=== PATIENT | female | born 1960 | race African-American/Black ===

== ENCOUNTER 2017-02-19 02:30 | Inpatient (IN) | payer OTHER ==
[2017-02-18 12:33] VITALS: BMI 39.5
[2017-02-19] MEDS ORDERED: oxyCODONE HCL 10 MG SUSTAINED ACTING TABLET ONE (08:04)
[2017-02-19] MEDS ORDERED: GABAPENTIN 300 MG CAPSULE (FP) ONE (08:05)
[2017-02-19] MEDS ORDERED: CELECOXIB 200 MG CAPSULE ONE (08:05)
[2017-02-19] MEDS ORDERED: TRANEXAMIC ACID 1000 MG/10 ML VIAL IVPUSH ONE (08:06)
[2017-02-19] MEDS ORDERED: GABAPENTIN 300 MG CAPSULE (FP) PO ONE (08:06)
[2017-02-19] MEDS ORDERED: CEFAZOLIN 2 GM/D5W 50 ML IVPB ONE (08:06)
[2017-02-19] MEDS ORDERED: CELECOXIB 200 MG CAPSULE PO ONE (08:06)
[2017-02-19] MEDS ORDERED: oxyCODONE HCL 10 MG SUSTAINED ACTING TABLET PO ONE (08:06)
--- NOTE | 2017-02-19 08:08 | HP ---
Satellite [facility] - Chief Complaint Chief Complaint: left knee pain - Past Medical History Allergies/Adverse Reactions: Allergies Allergy/AdvReac Type Severity Reaction Status Date / Time No Known Drug Allergies Allergy Verified 10/02/16 14:21 seasonal Allergy Mild Uncoded 10/02/16 14:21 - Current Medications Current Medications: Home Medications Medication Instructions Recorded Cetirizine HCl [Zyrtec -] 10 mg PO DAILY 02/18/17 Chlorthalidone 25 mg PO DAILY 02/18/17 Gabapentin [Neurontin] 600 mg PO TID 02/18/17 Losartan/Hydrochlorothiazide 1 each PO DAILY 02/18/17 [Hyzaar 100-25 Tablet] Potassium Chloride [K-Dur -] 20 meq PO DAILY 02/18/17 Tramadol HCl 50 mg PO DAILY PRN 02/18/17 [facility] Physical Exam - Physical Examination General Appearance: Well Nourished, Well Developed, Alert & Oriented x3, Obese ENT: Clear Lung: Normal air movement Heart: Regular rate & rhythm Extremities: Other (left knee- + swelling, + ttp, dec rom, nvi xray show severe tricompartmental djd) Neurological: Intact, Alert, Oriented Satellite Impression/Plan - Impression/Plan Impression: left knee djd Operative Procedure: left franchesca tkr Date to be Performed: 02/19/17
[2017-02-19] MEDS ORDERED: MIDAZOLAM HCL 2 MG/2 ML SINGLE DOSE VIAL ONE ×2 (08:19→09:49)
[2017-02-19] MEDS ORDERED: SODIUM CHLORIDE 0.9% P/F 10 ML VIAL IJ ONE (08:19)
[2017-02-19] MEDS ORDERED: DEXAMETHASONE SOD PHOSPHATE/PF 10 MG/ML SDV ONE (08:19)
[2017-02-19] MEDS ORDERED: ROPIVACAINE HCL 0.5% 30ML VIAL ONE (08:19)
[2017-02-19] MEDS ORDERED: VANCOMYCIN 1,000 MG VIAL (RESTRICTED TO ID ONLY) ONE (08:26)
[2017-02-19] MEDS ORDERED: ceFAZolin SODIUM 1 GM VIAL ONE (08:26)
[2017-02-19] MEDS ORDERED: PROPOFOL 20 ML ONE ×4 (09:49)
[2017-02-19] MEDS ORDERED: LACTATED RINGERS SOLUTION 1,000 ML IV SCH (12:00)
[2017-02-19] MEDS ORDERED: MAGNESIUM HYDROX 2400MG/30ML ORAL SUSPENSION 30 ML CUP PO PRN (12:00)
[2017-02-19] MEDS ORDERED: ONDANSETRON 4 MG/2 ML VIAL IVPB PRN (12:00)
[2017-02-19] MEDS ORDERED: MAG HYDROX/AL HYDROX/SIMETH 30 ML UNIT-DOSE CUP PO PRN (12:00)
--- NOTE | 2017-02-19 12:04 | OP ---
Operative Note - Note: Operative Date: 02/19/17 (tex) Pre-Operative Diagnosis: left knee djd Operation: left franchesca tkr Post-Operative Diagnosis: Same as Pre-op Surgeon: Wyatt Singh Front End Mechanic: Robbin Darling Anesthesia: Spinal, Local Specimens Removed: bone fragments Estimated Blood Loss (mls): 50 (tourniquet) Operative Report Dictated: Yes
[2017-02-19] MEDS ORDERED: ROPIVACAINE 0.2% 400ML 400 ML ML NR ONE (12:16)
[2017-02-19] MEDS ORDERED: oxyCODONE HCL 5 MG TABLET PO PRN (12:16)
[2017-02-19] MEDS ORDERED: ONDANSETRON 4 MG/2 ML VIAL ONE (12:32)
[2017-02-19] MEDS ORDERED: oxyCODONE HCL 5 MG TABLET ONE (13:19)
[2017-02-19] MEDS ORDERED: ACETAMINOPHEN 325 MG TABLET (FP) PO SCH (15:00)
[2017-02-19] MEDS: oxyCODONE HCL 5 MG TABLET PO PRN (16:02)
[2017-02-19] MEDS: CEFAZOLIN 2 GM/D5W 50 ML IVPB SCH (17:23)
[2017-02-19] MEDS: SENNOSIDES/DOCUSATE COMBO (SENNA PLUS) TABLET (UD) PO SCH (21:32)
[2017-02-19] MEDS: ACETAMINOPHEN 325 MG TABLET (FP) PO SCH (21:32)
[2017-02-19] MEDS: oxyCODONE HCL 10 MG SUSTAINED ACTING TABLET PO SCH (21:32)
[2017-02-19] MEDS: GABAPENTIN 300 MG CAPSULE (FP) PO SCH (21:33)
[2017-02-20] MEDS: oxyCODONE HCL 5 MG TABLET PO PRN ×4 (01:03→18:05)
[2017-02-20] MEDS: ACETAMINOPHEN 325 MG TABLET (FP) PO SCH ×4 (01:17→21:44)
[2017-02-20] MEDS: CEFAZOLIN 2 GM/D5W 50 ML IVPB SCH (01:51)
[2017-02-20] MEDS: ASPIRIN 325 MG TABLET PO SCH (08:03)
--- NOTE | 2017-02-20 08:14 | PN ---
Progress Note (short form) - Note Progress Note: Ortho Pt seen and examined s/p left franchesca tkr pod #1 Selected Entries 02/20/17 06:00 Temperature 97.9 F Pulse Rate 84 Respiratory 19 Rate Blood Pressure 126/77 dressing c/d/i, calf soft, nt rom 0-30, nvi cbc pending a/p PT dvt ppx pain control d/c planning home vs rehab
[2017-02-20 09:11] LABS: MCH 26.2 pg (25.7-33.7); MCHC 32.5 g/dl (32.0-36.0); MEAN CELL VOLUME 80.7 fl (80-96); MEAN PLT VOLUME 7.3 fl (7.5-11.1); PLATELET COUNT 310 K/MM3 (134-434); RDW 13.8 % (11.6-15.6); WHITE BLOOD COUNT 7.8 K/mm3 (4.0-10.0)
[2017-02-20 09:16] LABS: CALCIUM 8.8 mg/dl (8.4-10.2); CREATININE 0.7 mg/dl (0.6-1.3)
[2017-02-20] MEDS: MULTIVITAMINS (DAILY MVI) TABLET (FP) PO SCH (10:06)
[2017-02-20] MEDS: PANTOPRAZOLE 40 MG TABLET (FP) PO SCH (10:06)
[2017-02-20] MEDS: SENNOSIDES/DOCUSATE COMBO (SENNA PLUS) TABLET (UD) PO SCH ×2 (10:06→21:44)
[2017-02-20] MEDS: oxyCODONE HCL 10 MG SUSTAINED ACTING TABLET PO SCH ×2 (10:07→21:45)
[2017-02-20] MEDS: CHLORTHALIDONE 25 MG TABLET PO SCH (10:07)
[2017-02-20] MEDS: LOSARTAN 50MG/HCTZ 12.5MG 1 TAB (FP) PO SCH (10:07)
[2017-02-20] MEDS: POTASSIUM CHLORIDE TABS 20 MEQ TABLET.ER (FP) PO SCH (10:08)
[2017-02-20] MEDS: LORATADINE 10 MG TABLET PO SCH (10:08)
[2017-02-20] MEDS: GABAPENTIN 300 MG CAPSULE (FP) PO SCH ×2 (10:09→21:44)
--- NOTE | 2017-02-20 12:29 | SPEC ---
DATE OF OPERATION: 02/19/2017 OPERATION: Left total knee replacement with robotic-assisted navigation (MAKOplasty). PREOPERATIVE DIAGNOSIS: Degenerative joint disease, left knee. POSTOPERATIVE DIAGNOSIS: Degenerative joint disease, left knee. SURGEON: Wyatt Singh M.D. SCANNING COORDINATOR: Dawson Irvin ANESTHESIA: Regional and spinal. CLOSURE: A Triathlon knee system with a 4 femur, a 5 tibia, a 11 polyethylene, a 35 patella. A number 1 Vicryl fascia, 0 and 2-0 for subcutaneous, 3-0 Monocryl subcuticular with skin glue for skin, 4-0 undyed Vicryl for pin sites. ESTIMATED BLOOD LOSS: Negligible. TOURNIQUET TIME: Approximately 75 minutes. COMPLICATIONS: None CONDITION: To recovery room in stable condition. DESCRIPTION OF PROCEDURE: Patient was taken to the operating room on February 19, 2017. Regional and spinal anesthesia were administered by the anesthesiologist. IV antibiotics and TXA were administered prophylactically prior to the case. A well-padded pneumatic tourniquet was placed on the left proximal thigh. The left lower extremity was prepped and draped in the usual sterile fashion. An approximately 12-cm midline incision centered over the patella was incised. Hemostasis was achieved with Bovie cautery. Sharp dissection was carried down to the level of the extensor mechanism. The medial parapatellar arthrotomy was then performed. The patella was inverted and the knee was flexed up to 90 degrees. Subperiosteal dissection was performed on the anteromedial proximal tibia until the knee was able to be brought forward. This was facilitated by taking the ACL, the PCL, and the medial and lateral menisci. A checkpoint was malleted into the medial femoral condyle and into the anteromedial proximal tibia. Through two small stab incisions in the mid femur and two in the mid tibia, two bicortical pins were drilled, achieving excellent height. Two of these pins were attached to the navigation arrays. The knee was then registered with the navigation device by rotating the hip to ascertain the center of rotation of the hip with points on both the medial and lateral malleoli and multiple points on both the femur and on the tibia. Excellent registration was confirmed by "popping the bubbles". At this time, the osteophytes on the edges of the proximal tibia both medially and laterally, as well as on the medial lateral femoral condyles underneath the collateral ligaments were debrided. The knee was stressed in extension and in flexion to confirm good gaps. The virtual positions of the components were then optimized in order to have a balanced knee, both in extension and in 90 degrees of flexion. The sizes of the components were also optimized to get good coverage over both the tibia and the femur and to produce equal gaps in extension and flexion with the appropriate amount of external rotation of the femur, the appropriate amount of flexion of the femoral component and the appropriate slope on the tibial component. At this time, the robot was brought into the field and registered. The robot was used to cut the proximal tibia and to make all the cuts on the distal femur. The bone was then removed. A spacer block in extension and flexion was used to confirm equal balancing of the component in both extension and 90 degrees of flexion. The box for the posterior cruciate sacrificing component was then performed and a trial component on the femur and tibia was applied. The femoral component was clipped into place with the appropriate external rotation. This was confirmed by the navigation device, ensuring the appropriate position of the tibial component on the proximal tibia. The patella was calipered for thickness and osteotomized at the appropriate level. A lollipop was used to drill the three lugholes in the patella and then a trial component was applied. The knee was taken through a range of motion and found to have excellent tracking of the patella from full extension to full flexion, with good stability, varus/valgus throughout range of motion. The trial components were then removed. Before removing the tibial tray, the keyhole was made. The knee was then thoroughly irrigated with antibiotic irrigation. The real components were then cemented in, using modern generation cement techniques with antibiotic cement and pressurization. After the cement was hardened, the knee was thoroughly inspected to remove all excess cement. The real polyethylene component was then clipped into place. Again, range of motion, stability and tracking were found to be excellent throughout. The knee was then pulse antibiotic irrigated and dried. Vancomycin powder was placed into the knee. The checkpoints were removed. The medial parapatellar arthrotomy was then closed using number 1 Vicryl interrupted suture. The knee was again taken through range of motion and found to have no undue tension on the repair and good tracking throughout. The subcutaneous was closed with 0 and 2-0 Vicryl and 3-0 Monocryl subcuticular for skin with skin glue. The pins were removed in the femur and the tibia and pulse antibiotic irrigated and closed with 4-0 undyed Vicryl. Sterile Aquacel dressing followed by a Kraus dressing was applied. The tourniquet was then deflated. One more dose of TXA was administered at the end of the case. The patient was awakened from anesthesia and transferred to the recovery room in stable condition. X-rays revealed good position of the components. There were no complications. Estimated blood loss was negligible. Total tourniquet time was approximately 75 minutes. Irene [id number]
--- NOTE | 2017-02-20 15:02 | PN ---
Progress Note (short form) - Note Progress Note: Patient doing well POD1 from total knee. Pain from knee is adequately controlled. Patient ambulated. She did not participate in physical therapy but plans to in rehab. Her only pain complaints are posterior L lower leg and ankle with some back pain. All of this pain is old and chronic. She has seen multiple physicians for that pain. Adductor canal catheter and pain medications are working for knee pain. Continue current care. Encourage ambulation.
[2017-02-21] MEDS: oxyCODONE HCL 5 MG TABLET PO PRN ×2 (02:17→18:29)
[2017-02-21] MEDS: ACETAMINOPHEN 325 MG TABLET (FP) PO SCH ×4 (02:19→21:40)
[2017-02-21] MEDS: LOSARTAN 50MG/HCTZ 12.5MG 1 TAB (FP) PO SCH ×2 (06:44→09:19)
--- NOTE | 2017-02-21 07:57 | PN ---
Progress Note (short form) - Note Progress Note: Ortho Pt seen and examined s/p left franchesca tkr pod #2 Selected Entries 02/21/17 06:33 Temperature 99.1 F Pulse Rate 88 Respiratory 19 Rate Blood Pressure 113/68 Laboratory Tests 02/20/17 02/20/17 08:30 08:30 WBC 7.8 Hgb 10.4 L Hct 31.9 L Plt Count 310 Potassium 2.9 L* dressing c/d/i, calf soft, nt rom 0-30, nvi a/p Refused repeat K, will repeat K today PT dvt ppx pain control d/c to snf- Due to the patients pain, difficulty with ambulating and lack of progress, it is recommended that the patient be transferred to SNF. She lives alone and has multiple flights of stairs that she will not be able to navigate on her own which will put her in severe risk if she is to be discharged home.
--- NOTE | 2017-02-21 07:58 | DS ---
Physical Examination Vital Signs: Vital Signs Temperature 99.1 F 02/21/17 06:33 Pulse Rate 88 02/21/17 06:33 Respiratory Rate 19 02/21/17 06:33 Blood Pressure 113/68 02/21/17 06:33 O2 Sat by Pulse Oximetry (%) 93 L 02/21/17 06:33 Labs: CBC, BMP 02/20/17 08:30 02/20/17 08:30 Discharge Summary Reason For Visit: OSTEOARTHRITIS Procedures: Principal: s/p left franchesca tkr Hospital Course: admitted for elective left franchesca tkr, developed post-op hypokalemia and was given IV K+, stable for d/c Condition: Good - Instructions Diet, Activity, Other Instructions: Post-op Instructions-Total Knee Replacement Call the office for a follow-up appointment in 1 week - [phone] Aspirin 325mg daily for 6 weeks. Pain medication was sent into your pharmacy. Apply Graduated Compression Stockings (TEDs) to both lower extremities- remove daily for hygiene ONLY Apply Sequential Compression Device (SCDs) to both Lower extremities remove for PT and hygiene ONLY Apply cold packs to affected area for 15 minutes every 2 hours. Physical Therapist will come to your home for the first 5 days. You will be set up with outpatient PT at your first post-operative visit. Patient may ambulate as tolerated-encourage self care (at least every 2-3 hours while awake) with walker or cane Maintain Aquacel (waterproof) dressing to operative wound (will be removed by surgeon at first office visit) Shower with Aquacel dressing in place-if Aquacel integrity compromised, remove and apply dry sterile dressing and notify Orthopedist. DO NOT SHOWER unless Orthopedists approves without Aquacel dressing CONTACT THE OFFICE FOR ANY CHANGE IN YOUR CONDITION (for example-fever greater than 102 degrees,excessive bleeding from operative site, purulent drainage, severe swelling or pain) GO TO THE EMERGENCY ROOM IF THERE IS A MEDICAL EMERGENCY Knee Precautions: * Keep a rolled towel under affected heel while in bed or chair (to keep knee in extension) * Keep affected leg elevated except during mealtimes * DO NOT PLACE PILLOW UNDER AFFECTED KNEE * If you have any questions, please do not hesitate to call the office - . Referrals: Wyatt Singh MD [Staff Physician] - Disposition: VNS/HOME HEALTH CARE - Home Medications Comprehensive Discharge Medication List: Ambulatory Orders Cetirizine HCl [Zyrtec -] 10 mg PO DAILY 02/18/17 Chlorthalidone 25 mg PO DAILY 02/18/17 Gabapentin [Neurontin] 600 mg PO TID 02/18/17 Losartan/Hydrochlorothiazide [Hyzaar 100-25 Tablet] 1 each PO DAILY 02/18/17 Potassium Chloride [K-Dur -] 20 meq PO DAILY 02/18/17 Tramadol HCl 50 mg PO DAILY PRN 02/18/17 Aspirin [ASA -] 325 mg PO DAILY@0800 tablet 02/19/17 Oxycodone HCl/Acetaminophen [Percocet 5-325 mg Tablet -] 1 - 2 tab PO Q6H #50 tab MDD 8 02/19/17
[2017-02-21] MEDS: ASPIRIN 325 MG TABLET PO SCH (08:07)
[2017-02-21 08:45] LABS: MCH 26.6 pg (25.7-33.7); MCHC 33.8 g/dl (32.0-36.0); MEAN CELL VOLUME 78.9 fl (80-96); MEAN PLT VOLUME 6.9 fl (7.5-11.1); PLATELET COUNT 271 K/MM3 (134-434); RDW 13.8 % (11.6-15.6); WHITE BLOOD COUNT 7.8 K/mm3 (4.0-10.0)
[2017-02-21 09:19] LABS: CALCIUM 8.4 mg/dl (8.4-10.2); CREATININE 0.7 mg/dl (0.6-1.3)
[2017-02-21] MEDS: POTASSIUM CHLORIDE TABS 20 MEQ TABLET.ER (FP) PO SCH (09:32)
[2017-02-21] MEDS: GABAPENTIN 300 MG CAPSULE (FP) PO SCH ×2 (09:32→21:40)
[2017-02-21] MEDS: MULTIVITAMINS (DAILY MVI) TABLET (FP) PO SCH (09:32)
[2017-02-21] MEDS: PANTOPRAZOLE 40 MG TABLET (FP) PO SCH (09:32)
[2017-02-21] MEDS: oxyCODONE HCL 10 MG SUSTAINED ACTING TABLET PO SCH ×2 (09:33→21:41)
[2017-02-21] MEDS: LORATADINE 10 MG TABLET PO SCH (09:39)
[2017-02-21] MEDS: SENNOSIDES/DOCUSATE COMBO (SENNA PLUS) TABLET (UD) PO SCH ×2 (09:39→21:39)
[2017-02-21] MEDS: CHLORTHALIDONE 25 MG TABLET PO SCH (09:40)
[2017-02-21] MEDS ORDERED: D5-1/2NS+40 MEQ KCL - 1,000 ML IV SCH (10:30)
[2017-02-21] MEDS ORDERED: POTASSIUM CHLORIDE TABS 20 MEQ TABLET.ER (FP) PO ONE (10:45)
--- NOTE | 2017-02-21 14:24 | PATH ---
Surgical Pathology Report Patient Name: CARITO ROJO Med. Rec. #: [id number] /Age/Gender: 1960 (Age: 56) / F Account: [id number] Location: [facility] MED-SURG Taken: 02/19/2017 Received: 02/19/2017 Reported: 02/21/2017 Physicians: Wyatt Singh M.D. Specimen(s) Received LEFT KNEE BONES Clinical History Left knee osteoarthritis Final Diagnosis BONES AND SOFT TISSUE, LEFT KNEE, TOTAL KNEE REPLACEMENT (MAKOPLASTY): DEGENERATIVE JOINT DISEASE. Electronically Signed Pawan Mullins M.D. Gross Description Received in formalin labeled "left knee bones" is a 15.5 x 12.0 x 3.0 cm aggregate of multiple irregular portions of bone and soft tissue with preserved tibial plateau and femoral condyles. The tibial plateau measures 7.8 x 6.0 x 1.5 cm. There is a 1.4 cm in greatest dimension area of eburnation identified. The remaining articular surfaces are drew-yellow and diffusely granular. The underlying trabecular bone is drew-yellow and heterogeneous. Valve Machine Operator sections are submitted in one cassette, following decalcification. /02/20/201702/20/2017
[2017-02-21 18:39] LABS: ALBUMIN 3.1 g/dl (3.5-5.0); ALK PHOS 57 U/L (32-92); ANION GAP 6 (8-16); BILIRUBIN,TOTAL 0.5 mg/dl (0.2-1.0); CALCIUM 8.5 mg/dl (8.4-10.2); CO2 31 mmol/L (22-28); GLUCOSE,RANDOM 116 mg/dl (74-106); SGOT/AST 41 U/L (10-42); SGPT/ALT 27 U/L (10-40)
[2017-02-22] MEDS: ACETAMINOPHEN 325 MG TABLET (FP) PO SCH ×2 (02:34→08:00)
[2017-02-22] MEDS: oxyCODONE HCL 5 MG TABLET PO PRN ×2 (02:35→09:55)
[2017-02-22 06:12] VITALS: BP 121/65; PULSE 80; TEMP 98.4
[2017-02-22] MEDS: LOSARTAN 50MG/HCTZ 12.5MG 1 TAB (FP) PO SCH (06:57)
[2017-02-22] MEDS: ASPIRIN 325 MG TABLET PO SCH (08:00)
[2017-02-22] MEDS ORDERED: PT OWN MED DRAWER 7, Y5N ONE (09:28)
[2017-02-22] MEDS: GABAPENTIN 300 MG CAPSULE (FP) PO SCH (10:16)
[2017-02-22] MEDS: LORATADINE 10 MG TABLET PO SCH (10:16)
[2017-02-22] MEDS: SENNOSIDES/DOCUSATE COMBO (SENNA PLUS) TABLET (UD) PO SCH (10:16)
[2017-02-22] MEDS: oxyCODONE HCL 10 MG SUSTAINED ACTING TABLET PO SCH (10:16)
[2017-02-22] MEDS: POTASSIUM CHLORIDE TABS 20 MEQ TABLET.ER (FP) PO SCH (10:16)
[2017-02-22] MEDS: CHLORTHALIDONE 25 MG TABLET PO SCH (10:16)
[2017-02-22] MEDS: MULTIVITAMINS (DAILY MVI) TABLET (FP) PO SCH (10:17)
[2017-02-22] MEDS: PANTOPRAZOLE 40 MG TABLET (FP) PO SCH (10:17)
== END 2017-02-22 12:26 | disposition home health service (06) | DRG 302 ==
LOC: FM/S 07:20
PROVIDERS: ADMIT Orthopaedic Surgery; ATTEND Orthopaedic Surgery
PROC: 8E0Y0CZ Robotic Assisted Procedure of Lower Extremity, Open Approach (ICD-10-PCS; 2017-02-19)
PROC: 0SRD0J9 Replacement of Left Knee Joint with Synthetic Substitute, Cemented, Open Approach (ICD-10-PCS; principal; 2017-02-19 09:30)
DX: M17.12 Unilateral primary osteoarthritis, left knee (principal); E87.6 Hypokalemia; I10 Essential (primary) hypertension; E03.9 Hypothyroidism, unspecified; E66.9 Obesity, unspecified; Z68.39 Body mass index [BMI] 39.0-39.9, adult
CPT/HCPCS: 36415; 73560-TC-LT; 80048; 80053; 85027; 88305-TC; 88311-TC; 94010; 94760; 97116-GP; 97162-PG

== ENCOUNTER 2017-06-08 14:32 | Emergency (ER) | payer OTHER ==
[2017-06-08 15:07] VITALS: BP 130/74; PULSE 78; TEMP 98.6; BMI 39.5
--- NOTE | 2017-06-08 15:46 | PDOC ---
History of Present Illness - General Chief Complaint: Pain Stated Complaint: JOINT PAIN Time Seen by Provider: 06/08/17 15:40 History Source: Patient Exam Limitations: No Limitations - History of Present Illness Initial Comments: 06/08/17 16:32 Patient came for evaluation of right wrist pain. States had a knee replacement to her left knee and right knee status post workmen's comp issue last year and has been using a cane rather than crutches or walker. 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 Has switched to her left hand using the cane but states right hand has intermittent tenderness that can be severe enough to wake up from sleep. Has discussed with Dr. Singh but he has not evaluated nor changed any treatment for this hand pain 06/08/17 16:34 Occurred: reports: last week Severity: reports: mild, moderate Pain Location: reports: upper extremity (right wrist pain ) Method of Injury: Yes: unknown Modifying Factors: improves with: None, cold therapy Associated Symptoms (Fall): denies symptoms Past History - Travel Traveled outside of the country in the last 30 days: No Close contact w/someone who was outside of country & ill: No - Past Medical History Allergies/Adverse Reactions: Allergies Allergy/AdvReac Type Severity Reaction Status Date / Time No Known Drug Allergies Allergy Verified 06/08/17 15:07 seasonal Allergy Mild Uncoded 06/08/17 15:07 Home Medications: Ambulatory Orders Cetirizine HCl [Zyrtec -] 10 mg PO DAILY 02/18/17 Chlorthalidone 25 mg PO DAILY 02/18/17 Gabapentin [Neurontin] 600 mg PO TID 02/18/17 Potassium Chloride [K-Dur -] 20 meq PO DAILY 02/18/17 Tramadol HCl 50 mg PO DAILY PRN 02/18/17 Ibuprofen [Motrin -] 400 mg PO QID PRN #28 tablet 06/08/17 Anemia: No Asthma: No Cancer: No Cardiac Disorders: No CVA: No COPD: No CHF: No Dementia: No Diabetes: No GI Disorders: Yes (GERD) Disorders: No HTN: Yes Hypercholesterolemia: No Liver Disease: No Seizures: No Thyroid Disease: No - Surgical History Abdominal Surgery: Yes (FIBROIDS REMOVED 1999) Appendectomy: No Cardiac Surgery: No Cholecystectomy: No Lung Surgery: No Neurologic Surgery: No Orthopedic Surgery: Yes (RIGHT TKR /2012) - Psycho/Social/Smoking Cessation Hx Anxiety: No Suicidal Ideation: No Smoking Status: No Smoking History: Never smoked Have you smoked in the past 12 months: No Number of Cigarettes Smoked Daily: 0 Information on smoking cessation initiated: No Hx Alcohol Use: No Drug/Substance Use Hx: No Substance Use Type: None Hx Substance Use Treatment: No Trauma Specific PMHX - Complaint Specific PMHX Arthritis: No Back Injury: Yes Neck Injury: No Hx Sacro Iliac Joint Dysfunction: No Review of Systems - Review of Systems Able to Perform ROS?: Yes Is the patient limited Kiswahili proficient: Yes Constitutional: Yes: Symptoms Reported, See HPI, Malaise HEENTM: Yes: Symptoms Reported Respiratory: Yes: Symptoms reported Musculoskeletal: Yes: Symptoms Reported, Joint Pain, Joint Swelling (right hand / palm) Neurological: Yes: Symptoms reported All Other Systems: Reviewed and Negative *Physical Exam - Vital Signs Last Vital Signs Temp Pulse Resp BP Pulse Ox 98.6 F 78 16 130/74 98 06/08/17 14:59 06/08/17 14:59 06/08/17 14:59 06/08/17 14:59 06/08/17 14:59 - Physical Exam General Appearance: Yes: Nourished, Apparent Distress. No: Appropriately Dressed HEENT: positive: GEOVANNA, Normal ENT Inspection, TMs Normal, Pharynx Normal Neck: positive: Supple. negative: Tender Respiratory/Chest: positive: Lungs Clear Extremity: positive: Normal Capillary Refill, Normal Inspection ( with tenderness upon supination and pronation at wrist flexion and extension is tender. Has no snuffbox tenderness, no crepitus or step-offs, no bony deformity. Strong grasp flexion and extension to fingers but that reproduces pain in her palm.), Normal Range of Motion Integumentary: positive: Normal Color, Dry, Warm Neurologic: positive: repair specialist II-XII NML intact, Fully Oriented, Alert, Normal Mood/ Affect, Normal Response, Motor Strength 5/5 *DC/Admit/Observation/Transfer Diagnosis at time of Disposition: Strain of wrist Qualifiers: Encounter type: initial encounter Laterality: right Qualified Code(s): S66.911A - Strain of unspecified muscle, fascia and tendon at wrist and hand level, right hand, initial encounter - Discharge Dispostion Disposition: HOME Condition at time of disposition: Stable Admit: No - Referrals Referrals: Codey Newton MD, MD [Primary Care Provider] - - Patient Instructions Printed Discharge Instructions: DI for Wrist Strain Additional Instructions: Rest, ice to area on and off for 15 minutes 4-6 times a day Avoid heavy lifting or exercise until pain and swelling is resolved or until further directed Keep area highly elevated to reduce swelling Use splints/Alcdies wrap as directed Followup with orthopedist in one to 2 days if not improving, if significantly improved may wait one week for followup with orthopedist May use ibuprofen 2-200 mg tablets every 6 hours as needed for pain - Post Discharge Activity Work/School Note: Back to Work
[2017-06-08] MEDS ORDERED: KETOROLAC TROMETHAMINE 60 MG/2 ML VIAL IM ONE (15:56)
[2017-06-08] MEDS ORDERED: KETOROLAC TROMETHAMINE 60 MG/2 ML VIAL ONE (15:59)
== END 2017-06-08 16:49 | disposition home or self-care (01) ==
LOC: JERFT 14:32
PROC: 3E0233Z Introduction of Anti-inflammatory into Muscle, Percutaneous Approach (ICD-10-PCS; principal; 2017-06-08)
DX: S66.911A Strain of unspecified muscle, fascia and tendon at wrist and hand level, right hand, initial encounter (principal); M70.831 Other soft tissue disorders related to use, overuse and pressure, right forearm; Y93.89 Activity, other specified; R26.89 Other abnormalities of gait and mobility; Z99.89 Dependence on other enabling machines and devices; I10 Essential (primary) hypertension; K21.9 Gastro-esophageal reflux disease without esophagitis; Z96.653 Presence of artificial knee joint, bilateral
CPT/HCPCS: 99281-25

== ENCOUNTER 2017-09-02 19:23 | Emergency (ER) | payer OTHER ==
[2017-09-02 19:37] VITALS: BP 118/78; PULSE 78; TEMP 98.2; BMI 24.7
[2017-09-02] MEDS ORDERED: diazePAM 5 MG TABLET PO ONE (20:36)
[2017-09-02] MEDS ORDERED: KETOROLAC TROMETHAMINE 30 MG/1 ML VIAL IM ONE (20:36)
--- NOTE | 2017-09-02 20:38 | PDOC ---
History of Present Illness - General Chief Complaint: Back Pain Stated Complaint: ARM PAIN Time Seen by Provider: 09/02/17 20:21 History Source: Patient - History of Present Illness Initial Comments: 09/02/17 20:32 57 year old female c/o neck and shoulder pain x 3 days that is getting worse. reports " i think i am having a muscle spasms." pain is worse with movement. denies chest pain, headache, abdominal pain, fever, NVD. pmHx: Hypertension, left knee replacement Past History - Past Medical History Allergies/Adverse Reactions: Allergies Allergy/AdvReac Type Severity Reaction Status Date / Time No Known Drug Allergies Allergy Verified 06/08/17 15:07 seasonal Allergy Mild Uncoded 06/08/17 15:07 Home Medications: Ambulatory Orders Cetirizine HCl [Zyrtec -] 10 mg PO DAILY 02/18/17 Chlorthalidone 25 mg PO DAILY 02/18/17 Gabapentin [Neurontin] 600 mg PO TID 02/18/17 Potassium Chloride [K-Dur -] 20 meq PO DAILY 02/18/17 Cyclobenzaprine HCl [Flexeril 10 mg] 10 mg PO BID PRN #10 tablet 09/02/17 Ibuprofen 600 mg PO QID PRN #20 tablet 09/02/17 Anemia: No Asthma: No Cancer: No Cardiac Disorders: No CVA: No COPD: No CHF: No Dementia: No Diabetes: No GI Disorders: Yes (GERD) Disorders: No HTN: Yes Hypercholesterolemia: No Liver Disease: No Seizures: No Thyroid Disease: No - Surgical History Abdominal Surgery: Yes (FIBROIDS REMOVED 1999) Appendectomy: No Cardiac Surgery: No Cholecystectomy: No Lung Surgery: No Neurologic Surgery: No Orthopedic Surgery: Yes (RIGHT TKR 2008/2010/2012) - Suicide/Smoking/Psychosocial Hx Smoking Status: No Smoking History: Never smoked Have you smoked in the past 12 months: No Number of Cigarettes Smoked Daily: 0 Information on smoking cessation initiated: No Hx Alcohol Use: No Drug/Substance Use Hx: No Substance Use Type: None Hx Substance Use Treatment: No Review of Systems - Review of Systems Able to Perform ROS?: Yes Is the patient limited Amharic proficient: No HEENTM: No: Symptoms Reported, See HPI, Eye Pain, Blurred Vision, Tearing, Recent change in vision, Double Vision, Cataracts, Ear Pain, Ocular Prothesis, Ear Discharge, Nose Pain, Nose Congestion, Tinnitus, Nose Bleeding, Hearing Loss , Throat Pain, Throat Swelling, Mouth Pain, Dental Problems, Difficulty Swallowing, Mouth Swelling, Other Respiratory: No: Symptoms reported, See HPI, Cough, Orthopnea, Shortness of Breath, SOB with Exertion, SOB at Rest, Stridor, Wheezing, Productive cough, Hemoptysis, Other Cardiac (ROS): No: Symptoms Reported, See HPI, Chest Pain, Edema, Irregular Heart Rate, Lightheadedness, Palpitations, Syncope, Chest Tightness, Other Musculoskeletal: Yes: Muscle Pain (neck and shoulder pain) *Physical Exam - Vital Signs Last Vital Signs Temp Pulse Resp BP Pulse Ox 98.2 F 78 18 118/78 99 09/02/17 19:32 09/02/17 19:32 09/02/17 19:32 09/02/17 19:32 09/02/17 19:32 - Physical Exam General Appearance: Yes: Appropriately Dressed Respiratory/Chest: positive: Lungs Clear, Normal Breath Sounds. negative: Chest Tender Cardiovascular: positive: Regular Rate, S1, S2 Musculoskeletal: positive: Muscle Spasm, Other (neck and shoulder tenderness. full rom. reports ashley with movement). negative: Vertebral Tenderness Integumentary: positive: Normal Color, Dry, Warm Neurologic: positive: Fully Oriented, Alert Medical Decision Making - Critical Care Time Total Critical Care Time (minutes): 0 - Medical Decision Making 09/02/17 20:52 A: muscle spasm P: muscle relaxant pain control patient reports that she is taking a cab home. will d/c home to follow up with pmd *DC/Admit/Observation/Transfer Diagnosis at time of Disposition: Musculoskeletal pain - Discharge Dispostion Disposition: HOME - Prescriptions Prescriptions: Cyclobenzaprine HCl [Flexeril 10 mg] 10 mg PO BID PRN #10 tablet PRN Reason: Muscle Spasms Ibuprofen 600 mg PO QID PRN #20 tablet PRN Reason: Pain - Referrals Referrals: Codey Newton MD, MD [Primary Care Provider] - Call tomorrow - Patient Instructions Printed Discharge Instructions: Muscle Strain Additional Instructions: take flexeril every 8 hours as needed for muscle spasms take ibuprofen every 6 hours as needed for pain follow up with your doctor as soon as possible. return to the ER if symptoms worsen.
[2017-09-02] MEDS ORDERED: KETOROLAC TROMETHAMINE 30 MG/1 ML VIAL ONE (20:41)
[2017-09-02] MEDS ORDERED: diazePAM 5 MG TABLET ONE (20:41)
== END 2017-09-02 20:54 | disposition home or self-care (01) ==
LOC: JER 19:23
PROC: 3E0233Z Introduction of Anti-inflammatory into Muscle, Percutaneous Approach (ICD-10-PCS; principal; 2017-09-02)
DX: M62.838 Other muscle spasm (principal); I10 Essential (primary) hypertension; K21.9 Gastro-esophageal reflux disease without esophagitis
CPT/HCPCS: 96372; 99281-25

== ENCOUNTER 2017-12-27 15:50 | Emergency (ER) | payer OTHER ==
[2017-12-27 16:04] VITALS: BP 136/75; PULSE 103; TEMP 98.8; BMI 38.0
--- NOTE | 2017-12-27 16:04 | PDOC ---
Rapid Medical Evaluation Time Seen by Provider: 12/27/17 16:01 Medical Evaluation: Allergies Allergy/AdvReac Type Severity Reaction Status Date / Time No Known Drug Allergies Allergy Verified 06/08/17 15:07 seasonal Allergy Mild Uncoded 06/08/17 15:07 I have performed a brief in-person evaluation of this patient. The patient presents with a chief complaint of: b/l shoulder pain, r>l x 2 weeks Pertinent physical exam findings: none I have ordered the following: none The patient will proceed to the ED for further evaluation.
[2017-12-27] MEDS ORDERED: KETOROLAC TROMETHAMINE 60 MG/2 ML VIAL IM ONE (16:39)
[2017-12-27] MEDS ORDERED: KETOROLAC TROMETHAMINE 60 MG/2 ML VIAL ONE (16:40)
--- NOTE | 2017-12-27 16:43 | PDOC ---
History of Present Illness - General Chief Complaint: Pain Stated Complaint: LOWER BACK PAIN, RT HAND PAIN Time Seen by Provider: 12/27/17 16:01 History Source: Patient Exam Limitations: No Limitations - History of Present Illness Initial Comments: 12/27/17 16:40 c/o bilateral upper back and sides of neck pain radiates to the arm neg fever or chills 2 weeks of pain worse at night, burning pain to the right upper arm neg fever or chills neg cough or sore throat Past History - Past Medical History Allergies/Adverse Reactions: Allergies Allergy/AdvReac Type Severity Reaction Status Date / Time No Known Drug Allergies Allergy Verified 12/27/17 16:01 seasonal Allergy Mild Uncoded 12/27/17 16:01 Home Medications: Ambulatory Orders Cetirizine HCl [Zyrtec -] 10 mg PO DAILY 02/18/17 Chlorthalidone 25 mg PO DAILY 02/18/17 Potassium Chloride [K-Dur -] 20 meq PO DAILY 02/18/17 Cyclobenzaprine HCl [Flexeril -] 5 mg PO TID #21 tablet 12/27/17 Naproxen [Naprosyn] 500 mg PO BID #14 tablet 12/27/17 Anemia: No Asthma: No Cancer: No Cardiac Disorders: No CVA: No COPD: No CHF: No Dementia: No Diabetes: No GI Disorders: Yes (GERD) Disorders: No HTN: Yes Hypercholesterolemia: No Liver Disease: No Seizures: No Thyroid Disease: No - Surgical History Abdominal Surgery: Yes (FIBROIDS REMOVED 1999) Appendectomy: No Cardiac Surgery: No Cholecystectomy: No Lung Surgery: No Neurologic Surgery: No Orthopedic Surgery: Yes (RIGHT TKR ) - Suicide/Smoking/Psychosocial Hx Smoking Status: No Smoking History: Never smoked Have you smoked in the past 12 months: No Number of Cigarettes Smoked Daily: 0 Information on smoking cessation initiated: No Hx Alcohol Use: No Drug/Substance Use Hx: No Substance Use Type: None Hx Substance Use Treatment: No Trauma Specific PMHX - Complaint Specific PMHX Arthritis: No Back Injury: Yes Neck Injury: No Hx Sacro Iliac Joint Dysfunction: No *Physical Exam - Vital Signs Last Vital Signs Temp Pulse Resp BP Pulse Ox 98.8 F 103 H 18 136/75 100 12/27/17 16:02 12/27/17 16:02 12/27/17 16:02 12/27/17 16:02 12/27/17 16:02 - Physical Exam General Appearance: Yes: Nourished, Appropriately Dressed HEENT: positive: EOMI, GEOVANNA, Normal ENT Inspection, TMs Normal, Pharynx Normal Neck: positive: Supple, Tender lateral. negative: Tender, Lymphadenopathy (R), Lymphadenopathy (L) Respiratory/Chest: positive: Lungs Clear, Normal Breath Sounds. negative: Chest Tender Cardiovascular: positive: Regular Rhythm, Regular Rate Musculoskeletal: positive: Normal Inspection Extremity: positive: Normal Capillary Refill, Normal Inspection, Normal Range of Motion, Tender (right lateral tricep muscle soreness to touch, neg bony tenderness ) Integumentary: positive: Normal Color, Dry, Warm Neurologic: positive: Fully Oriented, Alert, Normal Mood/Affect, Normal Response , Motor Strength 5/5 Medical Decision Making - Medical Decision Making 12/27/17 17:21 cc: lateral neck pain right side radiates to the upper tricep worse at night neg chest pain neg midline tenderness *DC/Admit/Observation/Transfer Diagnosis at time of Disposition: Cervical radiculopathy - Discharge Dispostion Disposition: HOME Condition at time of disposition: Good - Prescriptions Prescriptions: Cyclobenzaprine HCl [Flexeril -] 5 mg PO TID #21 tablet Naproxen [Naprosyn] 500 mg PO BID #14 tablet - Referrals Referrals: Codey Newton MD, MD [Primary Care Provider] - Berny Victoria MD [Staff Physician] - - Patient Instructions Additional Instructions: warm compresses to the neck every 4-6hrs for 20 minutes you can also use Icy HOT rub or Aspercream rub to the area of pain follow with the orthopedist for follow up - Post Discharge Activity
== END 2017-12-27 17:23 | disposition home or self-care (01) ==
LOC: JERFT 15:50
PROC: 3E0233Z Introduction of Anti-inflammatory into Muscle, Percutaneous Approach (ICD-10-PCS; principal; 2017-12-27)
DX: M54.12 Radiculopathy, cervical region (principal)
CPT/HCPCS: 96372; 99281-25

== ENCOUNTER 2018-02-05 12:54 | Emergency (ER) | payer OTHER ==
--- NOTE | 2018-02-05 13:05 | PDOC ---
Rapid Medical Evaluation Chief Complaint: Injury Time Seen by Provider: 02/05/18 13:03 Medical Evaluation: Allergies Allergy/AdvReac Type Severity Reaction Status Date / Time No Known Drug Allergies Allergy Verified 02/05/18 13:03 seasonal Allergy Mild Uncoded 02/05/18 13:03 02/05/18 13:04 The patient presents with a chief complaint of: ankle pain I have performed a brief in-person evaluation of this patient. Pertinent physical exam findings: vss, ankle pain, swelling I have ordered the following: ankle xray The patient will proceed to the ED for further evaluation.
[2018-02-05 13:07] VITALS: BP 139/89; PULSE 78; TEMP 98.7; BMI 39.5
[2018-02-05] MEDS ORDERED: ACETAMINOPHEN 325 MG TABLET (FP) PO ONE (13:22)
[2018-02-05] MEDS ORDERED: ACETAMINOPHEN 325 MG TABLET (FP) ONE (13:35)
--- NOTE | 2018-02-05 13:44 | PDOC ---
History of Present Illness - General Chief Complaint: Injury Stated Complaint: LT ANKLE PAIN Time Seen by Provider: 02/05/18 13:03 History Source: Patient - History of Present Illness Occurred: reports: other Lower Extremity Pain Location: left: ankle Past History - Past Medical History Allergies/Adverse Reactions: Allergies Allergy/AdvReac Type Severity Reaction Status Date / Time No Known Drug Allergies Allergy Verified 02/05/18 13:03 seasonal Allergy Mild Uncoded 02/05/18 13:03 Home Medications: Ambulatory Orders Cetirizine HCl [Zyrtec -] 10 mg PO DAILY 02/18/17 Chlorthalidone 25 mg PO DAILY 02/18/17 Potassium Chloride [K-Dur -] 20 meq PO DAILY 02/18/17 Naproxen [Naprosyn] 500 mg PO BID #14 tablet 12/27/17 Ibuprofen [Motrin -] 2 tab PO Q6H #30 tablet 02/05/18 Anemia: No Asthma: No Cancer: No Cardiac Disorders: No CVA: No COPD: No CHF: No Dementia: No Diabetes: No GI Disorders: Yes (GERD) Disorders: No HTN: Yes Hypercholesterolemia: No Liver Disease: No Seizures: No Thyroid Disease: No - Surgical History Abdominal Surgery: Yes (FIBROIDS REMOVED 1999) Appendectomy: No Cardiac Surgery: No Cholecystectomy: No Lung Surgery: No Neurologic Surgery: No Orthopedic Surgery: Yes (RIGHT TKR ) - Suicide/Smoking/Psychosocial Hx Smoking Status: No Smoking History: Never smoked Have you smoked in the past 12 months: No Number of Cigarettes Smoked Daily: 0 Hx Alcohol Use: No Drug/Substance Use Hx: No Substance Use Type: None Hx Substance Use Treatment: No Review of Systems - Review of Systems Constitutional: No: Chills, Fever Musculoskeletal: Yes: Joint Pain. No: Joint Swelling *Physical Exam - Vital Signs Last Vital Signs Temp Pulse Resp BP Pulse Ox 98.7 F 78 19 139/89 98 02/05/18 13:03 02/05/18 13:03 02/05/18 13:03 02/05/18 13:03 02/05/18 13:03 - Physical Exam General Appearance: Yes: Appropriately Dressed. No: Apparent Distress HEENT: positive: Normal Voice Neck: positive: Supple Respiratory/Chest: negative: Respiratory Distress Extremity: positive: Tender Integumentary: positive: Dry, Warm Neurologic: positive: Fully Oriented, Alert, Normal Mood/Affect ED Treatment Course - Medications Given in the ED: ED Medications Discontinued Medications Generic Name Dose Route Start Last Admin Trade Name Stephon PRN Reason Stop Dose Admin Acetaminophen 650 mg 02/05/18 13:22 02/05/18 13:37 Tylenol - PO 02/05/18 13:23 650 mg ONCE ONE Administration Medical Decision Making - Medical Decision Making 02/05/18 13:44 57-year-old female, morbidly obese with history of hypertension, left total knee replacement, currently undergoing physical therapy, ambulates w/walker at baseline, diagnosed with posterior tibial tendon dysfunction of left ankle last year at [facility] and here today with worsening pain to left ankle x 1 week, worse w/ weight bearing. Taking Aleve with no relief. No recent trauma. Pt well- appearing and stable with minimal tenderness to palpation to medial malleolus of left ankle. X-ray read, demonstrates pes planus with DJD and vascular calcifications. Will discharge with pain control and encourage orthopedic follow-up next week *DC/Admit/Observation/Transfer Diagnosis at time of Disposition: Ankle pain Qualifiers: Chronicity: unspecified Laterality: left Qualified Code(s): M25.572 - Pain in left ankle and joints of left foot - Discharge Dispostion Disposition: HOME Condition at time of disposition: Good - Prescriptions Prescriptions: Ibuprofen [Motrin -] 2 tab PO Q6H #30 tablet - Referrals Referrals: Codey Newton MD, MD [Primary Care Provider] - - Patient Instructions Additional Instructions: Take Motrin as needed for pain and follow-up with your orthopedics next week - Post Discharge Activity
== END 2018-02-05 13:48 | disposition home or self-care (01) ==
LOC: JERFT 12:54
DX: M25.572 Pain in left ankle and joints of left foot (principal); I10 Essential (primary) hypertension; Z99.89 Dependence on other enabling machines and devices; E66.01 Morbid (severe) obesity due to excess calories; Z68.39 Body mass index [BMI] 39.0-39.9, adult
CPT/HCPCS: 73610-TC-LT-FY; 99281-25

== ENCOUNTER 2018-07-07 13:05 | Emergency (ER) | payer OTHER ==
[2018-07-07 13:11] VITALS: BP 117/59; PULSE 80; TEMP 98.3; BMI 41.0
[2018-07-07] MEDS ORDERED: KETOROLAC TROMETHAMINE 60 MG/2 ML VIAL IM ONE (13:26)
[2018-07-07] MEDS ORDERED: KETOROLAC TROMETHAMINE 60 MG/2 ML VIAL ONE (13:29)
--- NOTE | 2018-07-07 13:32 | PDOC ---
History of Present Illness - General Chief Complaint: Back Pain Stated Complaint: LOWER BACK IN PAIN Time Seen by Provider: 07/07/18 13:12 - History of Present Illness Initial Comments: 58-year-old female 1 year status post left total knee arthroplasty presents for evaluation of an exacerbation of lower back pain with left leg radiculopathy. She denies loss of bowel bladder function or saddle paresthesia. Her pain is been increasing over the last week. She's had flareups like this in the past which were relieved by a shot of Toradol and a prescription for muscle relaxer. 07/07/18 13:27 Past History - Past Medical History Allergies/Adverse Reactions: Allergies Allergy/AdvReac Type Severity Reaction Status Date / Time No Known Drug Allergies Allergy Verified 07/07/18 13:07 seasonal Allergy Mild Uncoded 07/07/18 13:07 Home Medications: Ambulatory Orders Chlorthalidone 25 mg PO DAILY 04/04/18 Gabapentin 600 mg PO BID 04/04/18 Losartan 50Mg/Hctz 12.5MG [Hyzaar -] 50 mg PO DAILY 04/04/18 Montelukast Sodium [Singulair] 10 mg PO DAILY 04/04/18 Cyclobenzaprine HCl [Flexeril 10 mg] 10 mg PO HS PRN #10 tablet 07/07/18 Cyclobenzaprine HCl [Flexeril 10 mg] 10 mg PO HS PRN #10 tablet 07/07/18 Anemia: No Asthma: No Cancer: No Cardiac Disorders: No CVA: No COPD: No CHF: No DVT: No Dementia: No Diabetes: No GI Disorders: Yes (GERD) Disorders: No HTN: Yes Hypercholesterolemia: No Liver Disease: No Seizures: No Thyroid Disease: No - Surgical History Abdominal Surgery: Yes (FIBROIDS REMOVED 1999) Appendectomy: No Cardiac Surgery: No Cholecystectomy: No Lung Surgery: No Neurologic Surgery: No Orthopedic Surgery: Yes (RIGHT TKR , LEFT KNEE REPLACEMENT) - Suicide/Smoking/Psychosocial Hx Smoking Status: No Smoking History: Never smoked Have you smoked in the past 12 months: No Number of Cigarettes Smoked Daily: 0 Information on smoking cessation initiated: No Hx Alcohol Use: No Drug/Substance Use Hx: No Substance Use Type: None Hx Substance Use Treatment: No Review of Systems - Review of Systems Musculoskeletal: Yes: Back Pain All Other Systems: Reviewed and Negative *Physical Exam - Vital Signs Last Vital Signs Temp Pulse Resp BP Pulse Ox 98.3 F 80 18 117/59 100 07/07/18 13:09 07/07/18 13:09 07/07/18 13:09 07/07/18 13:09 07/07/18 13:09 - Physical Exam Comments: Lumbar spine skin color and temperature are normal range of motion is decreased there is tenderness in left-sided paralumbar musculature spasm. 5 out of 5 strength in bilateral lower extremities thighs and calves are soft and nontender. She has asymmetric edema in the left leg which has been present for the last year. She has no gross sensorimotor deficits she is neurovascularly intact. Mildly positive straight leg raise test on the left. 07/07/18 13:28 Medical Decision Making - Medical Decision Making Exacerbation of lumbar radiculopathy L give her a prescription for Flexeril and a single shot of Toradol in the emergency room. Spine surgery follow-up. 07/07/18 13:28 *DC/Admit/Observation/Transfer Diagnosis at time of Disposition: Lumbar radicular pain - Discharge Dispostion Disposition: HOME Condition at time of disposition: Stable Decision to Admit order: No - Referrals Referrals: Wyatt Carmona MD [Staff Physician] - - Patient Instructions Printed Discharge Instructions: Lumbar Radiculopathy, DI for Lumbar Radiculopathy Additional Instructions: Return to the emergency room should symptoms worsen or go unresolved. Please take the muscle relaxer as directed. I will be one tablet before bedtime to make sleepy. Follow up with spine surgery in 1-2 days further evaluation and treatment options. We take Tylenol for any increased pain that he may have - Post Discharge Activity
== END 2018-07-07 13:46 | disposition home or self-care (01) ==
LOC: JERFT 13:05
PROC: 3E0233Z Introduction of Anti-inflammatory into Muscle, Percutaneous Approach (ICD-10-PCS; principal; 2018-07-07)
DX: M54.16 Radiculopathy, lumbar region (principal)
CPT/HCPCS: 96372; 99281-25; G0463-25

== ENCOUNTER 2018-10-17 19:01 | Emergency (ER) | payer OTHER ==
--- NOTE | 2018-10-17 19:18 | PDOC ---
Rapid Medical Evaluation Time Seen by Provider: 10/17/18 19:18 Medical Evaluation: Allergies Allergy/AdvReac Type Severity Reaction Status Date / Time No Known Drug Allergies Allergy Verified 07/07/18 13:07 seasonal Allergy Mild Uncoded 07/07/18 13:07 10/17/18 19:18 I have performed a brief in-person evaluation of this patient. The patient presents with a chief complaint of: Here w/ exacerbation of her chronic LBP x 2 days, ran out of her gabapentin and naproxen. No LE weakness, saddle anesthesia or b/b incontinence. Herniated discs on MRI 2014. States given toradol shot last time which relieved her sxs Pertinent physical exam findings:Stable in NAD, ambulating w/ caner I have ordered the following:nothing The patient will proceed to the ED for further evaluation. Discharge Disposition - Diagnosis Back pain Qualifiers: Back pain location: low back pain Chronicity: acute Back pain laterality: unspecified Sciatica presence: without sciatica Qualified Code(s): M54.5 - Low back pain - Referrals Referrals: Codey Newton MD, [Primary Care Provider] - - Patient Instructions - Post Discharge Activity
[2018-10-17 19:22] VITALS: BP 135/53; PULSE 89; TEMP 98.3; BMI 41.0
[2018-10-17] MEDS ORDERED: KETOROLAC TROMETHAMINE 30 MG/1 ML VIAL IM ONE (19:32)
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
[2018-10-17] MEDS ORDERED: KETOROLAC TROMETHAMINE 30 MG/1 ML VIAL ONE (19:41)
== END 2018-10-17 20:16 | disposition home or self-care (01) ==
LOC: JERFT 19:01
PROC: 3E0233Z Introduction of Anti-inflammatory into Muscle, Percutaneous Approach (ICD-10-PCS; principal; 2018-10-17)
DX: M54.5 Low back pain (principal); I10 Essential (primary) hypertension; K21.9 Gastro-esophageal reflux disease without esophagitis; Z96.653 Presence of artificial knee joint, bilateral
CPT/HCPCS: 96372; 99281-25

== ENCOUNTER 2019-01-28 15:56 | Emergency (ER) | payer OTHER ==
[2019-01-28 16:16] VITALS: BP 113/70; PULSE 78; TEMP 98.7; BMI 41.3
--- NOTE | 2019-01-28 16:16 | PDOC ---
Rapid Medical Evaluation Time Seen by Provider: 01/28/19 16:10 Medical Evaluation: Allergies Allergy/AdvReac Type Severity Reaction Status Date / Time No Known Drug Allergies Allergy Verified 10/17/18 19:19 seasonal Allergy Mild Uncoded 10/17/18 19:19 01/28/19 16:11 I have performed a brief in-person evaluation of this patient. The patient presents with a chief complaint of: Left hand pain Pertinent physical exam findings: Full sensation to left forearm and hand grossly. Strength 5/5. 2+ radial pulses I have ordered the following: nothing The patient will proceed to the ED for further evaluation. Discharge Disposition - Diagnosis Left hand pain - Referrals - Patient Instructions - Post Discharge Activity
--- NOTE | 2019-01-28 17:49 | PDOC ---
History of Present Illness - General Chief Complaint: Pain Stated Complaint: LT HAND NUMBNESS Time Seen by Provider: 01/28/19 16:10 - History of Present Illness Initial Comments: 01/28/19 17:46 58-year-old female with a past medical history significant for hypothyroidism and hypertension presents for evaluation of left hand and arm pain with associated neck pain times one day. She's had episodes like this in the past. She has never really followed up with spine surgery. No systemic symptoms no chest pain. Past History - Past Medical History Allergies/Adverse Reactions: Allergies Allergy/AdvReac Type Severity Reaction Status Date / Time No Known Drug Allergies Allergy Verified 01/28/19 16:14 seasonal Allergy Mild Uncoded 01/28/19 16:14 Home Medications: Ambulatory Orders Chlorthalidone 25 mg PO DAILY 04/04/18 Gabapentin 600 mg PO BID 04/04/18 Losartan 50Mg/Hctz 12.5MG [Hyzaar -] 50 mg PO DAILY 04/04/18 Montelukast Sodium [Singulair] 10 mg PO DAILY 04/04/18 Cyclobenzaprine HCl [Flexeril 10 mg] 10 mg PO HS PRN #10 tablet 07/07/18 Cyclobenzaprine HCl [Flexeril 10 mg] 10 mg PO HS PRN #10 tablet 07/07/18 Naproxen [Naprosyn] 500 mg PO BID #20 tablet 10/17/18 Cyclobenzaprine HCl [Flexeril 10 mg] 10 mg PO HS PRN #10 tablet 01/28/19 Methylprednisolone [Medrol Dose Gallo] 4 mg PO ASDIR #21 tablet 01/28/19 Anemia: No Asthma: No Cancer: No Cardiac Disorders: No CVA: No COPD: No CHF: No DVT: No Dementia: No Diabetes: No GI Disorders: Yes (GERD) Disorders: No HTN: Yes Hypercholesterolemia: No Liver Disease: No Seizures: No Thyroid Disease: No - Surgical History Abdominal Surgery: Yes (FIBROIDS REMOVED 1999) Appendectomy: No Cardiac Surgery: No Cholecystectomy: No Lung Surgery: No Neurologic Surgery: No Orthopedic Surgery: Yes (RIGHT TKR /2012, LEFT KNEE REPLACEMENT) - Suicide/Smoking/Psychosocial Hx Smoking Status: No Smoking History: Never smoked Have you smoked in the past 12 months: No Number of Cigarettes Smoked Daily: 0 Hx Alcohol Use: No Drug/Substance Use Hx: No Substance Use Type: None Hx Substance Use Treatment: No Review of Systems - Review of Systems Constitutional: No: Fever Respiratory: No: Cough, Shortness of Breath Cardiac (ROS): No: Chest Pain Musculoskeletal: Yes: Neck Pain Neurological: Yes: Numbness, Tingling *Physical Exam - Vital Signs Last Vital Signs Temp Pulse Resp BP Pulse Ox 98.7 F 78 18 113/70 97 01/28/19 16:14 01/28/19 16:14 01/28/19 16:14 01/28/19 16:14 01/28/19 16:14 - Physical Exam Comments: 01/28/19 17:47 Cervical spine skin color and temperature are normal. There is tenderness about the left paracervical musculature as well as the trapezium. No midline tenderness. Right side is negative. 5 out of 5 strength in bilateral upper extremities without gross sensorimotor deficits. Negative Spurling maneuver bilaterally negative cubital tunnel Sobia sign and negative median nerve compression test. No gross sensorimotor deficits. She is neurovascularly intact. Moderate Sedation - Procedure Monitoring Vital Signs: Procedure Monitoring Vital Signs Temperature 98.7 F 01/28/19 16:14 Pulse Rate 78 01/28/19 16:14 Respiratory Rate 18 01/28/19 16:14 Blood Pressure 113/70 01/28/19 16:14 O2 Sat by Pulse Oximetry (%) 97 01/28/19 16:14 Medical Decision Making - Medical Decision Making 01/28/19 17:47 Cervical radiculopathy. She's had issues like this in the past and this is similar to her prior episodes. I'll treat her with a Medrol Dosepak and Flexeril have her follow-up with orthopedic spine surgery. *DC/Admit/Observation/Transfer Diagnosis at time of Disposition: Left hand pain, Cervical radiculopathy - Discharge Dispostion Disposition: HOME Condition at time of disposition: Stable Decision to Admit order: No - Prescriptions Prescriptions: Cyclobenzaprine HCl [Flexeril 10 mg] 10 mg PO HS PRN #10 tablet PRN Reason: Muscle Spasms Methylprednisolone [Medrol Dose Gallo] 4 mg PO ASDIR #21 tablet - Referrals Referrals: Codey Newton MD, MD [Primary Care Provider] - Wyatt Carmona MD [Staff Physician] - - Patient Instructions Printed Discharge Instructions: DI for Cervical Radiculopathy Additional Instructions: Please do not take any other anti-inflammatories such as Advil Motrin ibuprofen or Aleve while on the Medrol Dosepak. Please take the Medrol Dosepak as directed as well as the muscle relaxer. Return to the emergency room for worsening symptoms and follow-up with orthopedic spine surgery in 1-2 days for further evaluation and treatment options. - Post Discharge Activity
== END 2019-01-28 17:55 | disposition home or self-care (01) ==
LOC: JERFT 15:56
DX: M54.12 Radiculopathy, cervical region (principal); I10 Essential (primary) hypertension; E03.9 Hypothyroidism, unspecified
CPT/HCPCS: 99281-25

== ENCOUNTER 2019-03-13 15:42 | Emergency (ER) | payer OTHER ==
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
[2019-03-13 15:53] VITALS: BP 103/64; PULSE 87; TEMP 98.2; BMI 41.0
[2019-03-13] MEDS ORDERED: KETOROLAC TROMETHAMINE 60 MG/2 ML VIAL IM ONE (16:40)
[2019-03-13] MEDS ORDERED: KETOROLAC TROMETHAMINE 60 MG/2 ML VIAL ONE (16:43)
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
== END 2019-03-13 16:56 | disposition home or self-care (01) ==
LOC: JERFT 15:42
PROC: 3E0233Z Introduction of Anti-inflammatory into Muscle, Percutaneous Approach (ICD-10-PCS; principal; 2019-03-13)
DX: M54.5 Low back pain (principal); G89.29 Other chronic pain
CPT/HCPCS: 96372; 99281-25

== ENCOUNTER 2019-06-04 16:58 | Emergency (ER) | payer OTHER ==
[2019-06-04 17:08] VITALS: BMI 42.5
--- NOTE | 2019-06-04 17:08 | PDOC ---
Rapid Medical Evaluation Chief Complaint: Respiratory Time Seen by Provider: 06/04/19 17:03 Medical Evaluation: Allergies Allergy/AdvReac Type Severity Reaction Status Date / Time No Known Drug Allergies Allergy Verified 03/13/19 15:48 seasonal Allergy Mild Uncoded 03/13/19 15:48 06/04/19 17:03 I have performed a brief in-person evaluation of this patient. The patient presents with a chief complaint of: cough on/ off over a month- told to come to ER due to low potassium - Pertinent physical exam findings: well, I have ordered the following: CMP/ CbC, IV The patient will proceed to the ED for further evaluation. 06/04/19 17:05 Discharge Disposition - Diagnosis Hypokalemia - Referrals - Patient Instructions - Post Discharge Activity
[2019-06-04 18:44] LABS: ALBUMIN 4.2 g/dl (3.4-5.0); BILIRUBIN,TOTAL 0.8 mg/dL (0.2-1); BLOOD UREA NITROGEN 11.4 mg/dL (7-18); CALCIUM 9.7 mg/dL (8.5-10.1); CREATININE 0.9 mg/dL (0.55-1.3)
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
[2019-06-04 19:16] LABS: BASO % 0.4 % (0-2.0); EOS % 4.1 % (0-4.5); HEMATOCRIT 35.7 % (32.4-45.2); HEMOGLOBIN 11.9 GM/dL (10.7-15.3); LYMPH % 31.6 % (8-40); MCH 26.3 pg (25.7-33.7); MCHC 33.4 g/dl (32.0-36.0); MEAN CELL VOLUME 78.8 fl (80-96); MEAN PLT VOLUME 7.4 fl (7.5-11.1); MONO % 7.4 % (3.8-10.2); NEUT % 56.5 % (42.8-82.8); PLATELET COUNT 380 K/MM3 (134-434); RBC 4.53 M/mm3 (3.60-5.2); RDW 14.7 % (11.6-15.6); WHITE BLOOD COUNT 6.6 K/mm3 (4.0-10.0)
[2019-06-04 19:24] LABS: MAGNESIUM 2.1 mg/dL (1.8-2.4)
[2019-06-04 19:41] LABS: INR 1.09 (0.83-1.09); PROTHROMBIN TIME (PATIENT) 12.9 SEC (9.7-13.0)
[2019-06-04] MEDS ORDERED: POTASSIUM CHLORIDE TABS 20 MEQ TABLET.ER (FP) PO ONE ×4 (19:41→23:01)
--- NOTE | 2019-06-04 19:50 | PDOC ---
Documentation entered by Joselin Saldivar SCRIBE, acting as scribe for Donell Modi MD. Donlel Modi MD: This documentation has been prepared by the Janna rodriguez Brenda, SCRIBE, under my direction and personally reviewed by me in its entirety. I confirm that the documentation accurately reflects all work, treatment, procedures, and medical decision making performed by me. Attending Attestation - Resident Resident Name: SheilaSolitarioconradrajesh - ED Attending Attestation I have performed the following: I have examined & evaluated the patient, The case was reviewed & discussed with the resident, I agree w/resident's findings & plan, Exceptions are as noted - HPI HPI: 06/04/19 20:49 The patient is a 59 year old female, with a significant PMH of HTN, pinched nerve and hypothyroidism who presents to the emergency department, sent from her PCPs office for evaluation of hypokalemia. The patient reports going to her PCP for evaluation of a cough, at which time she was noticed to be hypokalemic and was sent to the ED for evaluation. She currently feels asymptomatic but still endorses a cough. The patient denies chest pain, shortness of breath, headache and dizziness. Denies fever, chills, nausea, vomiting, diarrhea and constipation. Denies any urinary symptoms. Denies any other symptoms. Allergies: Seasonal Past surgical history: RIGHT TKR /2012, LEFT KNEE REPLACEMENT, Fibroids removed 1999. Social history: Denies tobacco use, alcohol or drug use. PCP: Not on staff - Physicial Exam PE: 06/05/19 02:07 Agree with exam as documented by resident Dr. Hill - Medical Decision Making 06/04/19 21:48 59F sent by pcp for hypokalemia, denies any complaints K 3.0 here will replete and recheck f/u ekg f/u repeat labs dispo per clinical course 06/05/19 02:06 K 4.0 after repletion dc home pcp follow up
[2019-06-04] MEDS ORDERED: KCL 10 MEQ IVPB 10 MEQ/100 ML INFUS.BAG IVPB ONE (19:54)
[2019-06-04] MEDS: KCL 10 MEQ IVPB 10 MEQ/100 ML INFUS.BAG IVPB SCH ×2 (20:34→20:47)
[2019-06-04] MEDS ORDERED: SODIUM CHLORIDE 500 ML IV STA (20:43)
--- NOTE | 2019-06-04 21:53 | PDOC ---
*Physical Exam - Vital Signs Last Vital Signs Temp Pulse Resp BP Pulse Ox 98.9 F 78 19 127/78 99 06/04/19 17:04 06/04/19 17:04 06/04/19 17:04 06/04/19 17:04 06/04/19 17:04 - Physical Exam General Appearance: Yes: Nourished HEENT: positive: Normal ENT Inspection Neck: positive: Supple Respiratory/Chest: positive: Lungs Clear Cardiovascular: positive: Regular Rhythm, Regular Rate, S1, S2 Vascular Pulses: Dorsalis-Pedis (R): 2+, Doralis-Pedis (L): 2+ Gastrointestinal/Abdominal: positive: Soft Rectal Exam: positive: deferred Lymphatic: negative: Adenopathy Musculoskeletal: positive: Normal Inspection Extremity: positive: Normal Capillary Refill, Normal Inspection Integumentary: positive: Normal Color, Dry, Warm Neurologic: positive: Fully Oriented, Alert, Normal Mood/Affect ED Treatment Course - LABORATORY CBC & Chemistry Diagram: 06/04/19 18:17 06/05/19 00:35 - ADDITIONAL ORDERS Additional order review: Laboratory Results 06/04/19 06/04/19 06/04/19 18:50 18:00 18:00 PT with INR 12.90 Cancelled INR 1.09 Cancelled Sodium 141 Potassium 3.0 L Chloride 104 Carbon Dioxide 28 Anion Gap 9 BUN 11.4 Creatinine 0.9 Est GFR (CKD-EPI)AfAm 79.98 Est GFR (CKD-EPI)NonAf 69.01 Random Glucose 109 H Calcium 9.7 Magnesium 2.1 Total Bilirubin 0.8 AST 17 ALT 25 Alkaline Phosphatase 90 Total Protein 8.0 Albumin 4.2 06/04/19 18:17 RBC 4.53 MCV 78.8 L MCHC 33.4 RDW 14.7 MPV 7.4 L Neutrophils % 56.5 Lymphocytes % 31.6 Monocytes % 7.4 Eosinophils % 4.1 Basophils % 0.4 - Medications Given in the ED: ED Medications Discontinued Medications Generic Name Dose Route Start Last Admin Trade Name Freq PRN Reason Stop Dose Admin Potassium Chloride 10 meq in 100 mls @ 100 mls/hr 06/04/19 19:45 06/04/19 20: 47 Potassium Chloride 10 Meq Premix Ivpb - IVPB 06/04/19 21:44 100 mls/hr Q60M ODILIA Administration Sodium Chloride 500 mls @ 500 mls/hr 06/04/19 20:43 06/04/19 20:47 Normal Saline - IV 06/04/19 21:42 500 mls/hr ASDIR STA Administration Potassium Chloride 40 meq 06/04/19 19:41 06/04/19 19:59 K-Dur - PO 06/04/19 19:42 40 meq ONCE ONE Administration Medical Decision Making - Medical Decision Making Patient signed out to me from day team pending repeat BMP as she was originally brought here for hypokalemia. - Re-peat BMP collected and sent by me BMP: potassium normalized to 4 Disposition: Home *DC/Admit/Observation/Transfer Diagnosis at time of Disposition: Hypokalemia - Discharge Dispostion Disposition: HOME Condition at time of disposition: Improved Decision to Admit order: No - Referrals Referrals: ON STAFF,NOT [Primary Care Provider] - - Patient Instructions Printed Discharge Instructions: DI for Hypokalemia Additional Instructions: Please return to the emergency department with any new or worsening symptoms or concerns. Please follow up with your primary care physician within 72 hours. Print Language: JAPANESE - Post Discharge Activity
[2019-06-04 22:21] LABS: BLOOD UREA NITROGEN 12.4 mg/dL (7-18); CREATININE 0.8 mg/dL (0.55-1.3)
[2019-06-04] MEDS ORDERED: POTASSIUM CHLORIDE ORAL LIQUID 20 MEQ/15 ML PO ONE (22:35)
[2019-06-04] MEDS ORDERED: POTASSIUM CHLORIDE ORAL LIQUID 20 MEQ/15 ML ONE (23:02)
[2019-06-05 01:29] LABS: BLOOD UREA NITROGEN 12.8 mg/dL (7-18); CREATININE 0.8 mg/dL (0.55-1.3)
[2019-06-05 01:52] VITALS: BP 127/87; PULSE 72; TEMP 97.7
--- NOTE | 2019-06-05 12:54 | EKG ---
Test Reason : Blood Pressure : / mmHG Vent. Rate : 084 BPM Atrial Rate : 084 BPM P-R Int : 170 ms QRS Dur : 102 ms QT Int : 410 ms P-R-T Axes : 051 028 028 degrees QTc Int : 484 ms NORMAL SINUS RHYTHM NONSPECIFIC T WAVE ABNORMALITY PROLONGED QT INCOMPLETE RBBB ABNORMAL ECG Confirmed by DAVE STOLL MD ([id number]) on 06/05/2019 12:53:58 PM Referred By: Confirmed By:DAVE STOLL MD
== END 2019-06-05 01:52 | disposition home or self-care (01) ==
LOC: JER 16:58
PROC: 3E0337Z Introduction of Electrolytic and Water Balance Substance into Peripheral Vein, Percutaneous Approach (ICD-10-PCS; principal; 2019-06-04)
PROC: 3E0337Z Introduction of Electrolytic and Water Balance Substance into Peripheral Vein, Percutaneous Approach (ICD-10-PCS; 2019-06-04)
DX: E87.6 Hypokalemia (principal); I10 Essential (primary) hypertension; E03.9 Hypothyroidism, unspecified
CPT/HCPCS: 36415; 80048; 80053; 83735; 85025; 85610; 93005; 93010; 99283-25

== ENCOUNTER 2019-06-29 20:32 | Emergency (ER) | payer OTHER ==
[2019-06-29 21:04] VITALS: BP 119/73; PULSE 99; TEMP 99; BMI 25.8
[2019-06-29] MEDS ORDERED: ASPIRIN 81 MG CHEWABLE TABLETS PO ONE (22:08)
[2019-06-29] MEDS ORDERED: ASPIRIN 81 MG CHEWABLE TABLETS ONE (22:29)
[2019-06-29] MEDS ORDERED: SODIUM CHLORIDE FOR INHALATION 3 ML VIAL.NEB IH ONE (22:40)
--- NOTE | 2019-06-29 22:48 | PDOC ---
History of Present Illness - General Chief Complaint: Chest Pain Stated Complaint: LT EAR PAIN/CHEST/BACK PAIN Time Seen by Provider: 06/29/19 22:06 History Source: Patient, Old Records Exam Limitations: No Limitations - History of Present Illness Initial Comments: HPI: 59 y/o female presenting to [facility] ER complaining of acute on chronic cough intermittently for the past two months. Endorses diffuse pleuritic anterior and posterior chest pain with nonproductive cough. Symptoms are worse at night. Denies orthopnea, paroxysmal nocturnal dyspnea, or worsening of chronic pretibial edema. Denies pain to arms, neck, or abdomen. Has been evaluated in clinic for the symptoms. Was prescribed Albuterol and Fluticone without improvement in symptoms. Social Hx: - EtoH: Denies - Tobacco: Nonsmoker Medical Hx: - HTN - Hypothyroidism - Chronic back pain secondary to multiple pinched nerves Review of Systems: In addition to that documented in the HPI above, the additional ROS was obtained : Constitutional: Denies fevers or chills Head: Denies vision changes ENMT: Denies sore throat CV: Per HPI Resp: Denies SOB GI: Denies abd pain, vomiting, or diarrhea : Denies painful urination or hematuria MSK: Denies recent trauma Skin: Denies new rashes Neuro: Denies new numbness or tingling or weakness Endocrine: Denies polyuria Heme: Denies bleeding or bruising Physical Examination: Constitutional: Well-developed, well-nourished adult female in no acute distress or obvious discomfort. Found semi-fowlers on hospital hallway bed. Alert and oriented x4. Answered all questions appropriately and completely. Speech was non-labored, non-pressured. Head: Normocephalic. No obvious external signs of trauma. Cardiovascular / Chest: Regular rate and regular rhythm. No murmur, rubs, clicks , or gallops. Peripheral pulses: radial pulses full. Mild diffuse anterior chest wall tenderness. 1+ bilateral pretibial edema. Respiratory: Occasional dry sounding cough during interview. Breathing unlabored. Speaking in complete sentences without pausing. Equal chest rise and fall. Clear to auscultation bilaterally. No stridor, no wheezing, no rhonchi. Gastrointestinal: abdomen is soft, non-tender, non-distended. Neuro: Alert and oriented. Moving all four extremities spontaneously. Skin: Warm, dry, and intact. Psych: Affect: appropriate. Mood: normal. MDM: *Reviewed vital signs, nursing notes, and prior visit documentation (if available). 59 y/o female presenting for two months of chronic chest tightness and nonproductive cough. No relief with albuterol and inhaled fluticasone. Worse at night. Afebrile. Vitals unremarkable for hypotension or tachycardia. Normoxic on room air. Physical exam as described above. Low suspicion for ACS, CHF, PNA, asthma exacerbation. Ordered inhaled saline for symptom relief. CXR unremarkable for acute cardiopulmonary process per ED wet read. Radiology report pending. EKG unremarkable for ischemic findings. Troponin not elevated. CBC unremarkable for leukocytosis. Pt endorsed h/o of cough with improvement after ENT clinic procedure in past. Pt reassessed. Now complaining of exacerbation of chronic back pain. Ordered Tylenol for relief. Suspect possible cough secondary to Alcides inhibitor versus GERD versus other vocal cord irritation. Prescribed Tylenol with Codeine and short course of Omeprazole for symptom relief. Referred to ENT and GI for acute symptoms. Referred to neurosurgery for chronic back pain at pts request. Discussed imaging and laboratory results with pt. Answered all questions. Provided return precautions. Pt expressed verbal understanding and agreement with plan to discharge home with outpatient follow up. David White M.D., PGY2 Emergency Medicine Resident Past History - Past Medical History Allergies/Adverse Reactions: Allergies Allergy/AdvReac Type Severity Reaction Status Date / Time No Known Drug Allergies Allergy Verified 06/04/19 17:08 seasonal Allergy Mild Uncoded 06/04/19 17:08 Home Medications: Ambulatory Orders Chlorthalidone 25 mg PO DAILY 04/04/18 Gabapentin 600 mg PO BID 04/04/18 Losartan 50Mg/Hctz 12.5MG [Hyzaar -] 50 mg PO DAILY 04/04/18 Montelukast Sodium [Singulair] 10 mg PO DAILY 04/04/18 Acetaminophen with Codeine [Tylenol with Codeine #3 Tablet] 1 each PO HS PRN # 10 tablet MDD 1 tab 06/30/19 Omeprazole 20 mg PO DAILY 14 Days #14 tablet. 06/30/19 Anemia: No Asthma: No Cancer: No Cardiac Disorders: No CVA: No COPD: No CHF: No DVT: No Dementia: No Diabetes: No GI Disorders: Yes (GERD) Disorders: No HTN: Yes Hypercholesterolemia: No Liver Disease: No Seizures: No Thyroid Disease: Yes Other medical history: Vertigo - Surgical History Abdominal Surgery: Yes (FIBROIDS REMOVED 1999) Appendectomy: No Cardiac Surgery: No Cholecystectomy: No Lung Surgery: No Neurologic Surgery: No Orthopedic Surgery: Yes (RIGHT TKR 2008/2010/2012, LEFT KNEE REPLACEMENT) - Suicide/Smoking/Psychosocial Hx Smoking Status: No Smoking History: Never smoked Have you smoked in the past 12 months: No Number of Cigarettes Smoked Daily: 0 Hx Alcohol Use: No Drug/Substance Use Hx: No Substance Use Type: None Hx Substance Use Treatment: No *Physical Exam - Vital Signs Last Vital Signs Temp Pulse Resp BP Pulse Ox 99 F 99 H 20 119/73 99 06/29/19 20:57 06/29/19 20:57 06/29/19 20:57 06/29/19 20:57 06/29/19 20:57 ED Treatment Course - LABORATORY CBC & Chemistry Diagram: 06/29/19 22:43 06/29/19 22:43 - RADIOLOGY Radiology Studies Ordered: Category Date Time Status CHEST PA & LAT [RAD] Stat Radiology 06/29/19 22:08 Ordered *DC/Admit/Observation/Transfer Diagnosis at time of Disposition: Chronic cough, Pleuritic chest pain - Discharge Dispostion Disposition: HOME Condition at time of disposition: Good Decision to Admit order: No - Prescriptions Prescriptions: Acetaminophen with Codeine [Tylenol with Codeine #3 Tablet] 1 each PO HS PRN # 10 tablet MDD 1 tab PRN Reason: Cough Omeprazole 20 mg PO DAILY 14 Days #14 tablet.dr - Referrals Referrals: Rae Harrison MD [Non Staff, Medical] - Maurisio Porter MD, FAANS [Staff Physician] - Pavan Bhandari MD [Staff Physician] - Tirso Anderson MD [Staff Physician] - - Patient Instructions Printed Discharge Instructions: DI for Cough -- Adult, DI for ALCIDES Inhibitor Cough Additional Instructions: You were seen today for a cough for the past several months. Your EKG, blood work, and chest xray were normal. Your symptoms may be related to the condition mentioned to your by your ENT. It may also be related to symptoms of acid reflux. It may also be related to your Alcides Inhibitor (the Hyzaar); this medication sometimes causes a dry cough. DO NOT STOP TAKING YOUR HYZAAR WITHOUT TALKING TO YOUR PRIMARY CARE DOCTOR FIRST. I have sent two prescriptions to your pharmacy. The first is for Tylenol with Codeine and the second is for Omeprazole. Take as directed on the package inserts. Do not exceed the recommended dosages. Follow up with your primary care doctor within the next 3-4 days. You will need to call to make an appointment. The number is included in this packet. A copy of todays results are attached to this packet. Take it to the appointment so your doctor can review them. I have also placed referrals for you to see GI (Stomach Doctor), ENT, and neurosurgery doctors. You will need to call to make an appointment. The numbers are included in this packet. A copy of todays results are attached to this packet. Take it to the appointment so your doctors can review them. Go to the nearest emergency department if your condition worsens or you feel like you need additional emergency evaluation. Print Language: MACEDONIAN - Post Discharge Activity
[2019-06-29 23:12] LABS: BASO % 0.5 % (0-2.0); EOS % 3.1 % (0-4.5); HEMOGLOBIN 12.5 GM/dL (10.7-15.3); LYMPH % 27.1 % (8-40); MCH 26.3 pg (25.7-33.7); MCHC 32.9 g/dl (32.0-36.0); MEAN CELL VOLUME 79.9 fl (80-96); MEAN PLT VOLUME 7.3 fl (7.5-11.1); MONO % 10.1 % (3.8-10.2); NEUT % 59.2 % (42.8-82.8); PLATELET COUNT 341 K/MM3 (134-434); RBC 4.75 M/mm3 (3.60-5.2); RDW 15.2 % (11.6-15.6); WHITE BLOOD COUNT 8.4 K/mm3 (4.0-10.0)
[2019-06-29 23:42] LABS: ALBUMIN 4.4 g/dl (3.4-5.0); BILIRUBIN,TOTAL 0.6 mg/dL (0.2-1); BLOOD UREA NITROGEN 19.2 mg/dL (7-18); CALCIUM 9.7 mg/dL (8.5-10.1); POTASSIUM 3.5 mmol/L (3.5-5.1); TOT PROT 8.3 g/dl (6.4-8.2)
--- NOTE | 2019-06-30 00:30 | PDOC ---
Documentation entered by Tierra Bosch SCRIBE, acting as scribe for Richi Rojas MD. Richi Rojas MD: This documentation has been prepared by the aribe, Tierra Bosch SCRIBE, under my direction and personally reviewed by me in its entirety. I confirm that the documentation accurately reflects all work, treatment, procedures, and medical decision making performed by me. Attending Attestation - Resident Resident Name: David White - ED Attending Attestation I have performed the following: I have examined & evaluated the patient, The case was reviewed & discussed with the resident, I agree w/resident's findings & plan, Exceptions are as noted - HPI HPI: 06/29/19 22:42 The patient is a 59-year-old female, with a past medical history of HTN and hypothyroidism, who presents to the ED with 2 months of cough. Pt denies F/C. Denies sputum production. States that the cough is worse at night. Pt reports that she has developed pain in her chest and back 2/2 coughing. Denies any chest pain or SOB when not coughing. Denies new leg swelling. Pt has been seen by her PMD and started on albuterol and steroids, with no relief of her symptoms. Pt reports that she had a similar problem years ago. Saw an ENT who found a lesion on her vocal cords. Allergies: NKDA, seasonal. PCP: Dr. Harrison - Physicial Exam PE: 06/29/19 22:42 GENERAL: Awake, alert, and fully oriented, in no acute distress. HEAD: No signs of trauma EYES: PERRLA, EOMI, sclera anicteric, conjunctiva clear ENT: Auricles normal inspection, hearing grossly normal, nares patent, oropharynx clear without exudates. Moist mucosa NECK: Nontender, no stepoffs, Normal ROM, supple, no lymphadenopathy, JVD, or masses LUNGS: Breath sounds equal, clear to auscultation bilaterally. No wheezes, and no crackles HEART: Regular rate and rhythm, normal S1 and S2, no murmurs, rubs or gallops ABDOMEN: Soft, nontender, normoactive bowel sounds. No guarding, no rebound. No masses EXTREMITIES: Normal range of motion, no edema. No clubbing or cyanosis. No cords, erythema, or tenderness NEUROLOGICAL: Cranial nerves II through XII intact. 5/5 strength and sensation in all extremities, Normal speech, normal gait, normal cerebellar function SKIN: Warm, Dry, normal turgor, no rashes or lesions noted. - Medical Decision Making 06/30/19 00:12 59 F with cough x 2 months. Suspect post-viral bronchitis vs GERD. Pt with no fevers to suggest infectious process. No EKG changes to suggest ACS. No evidence of volume overload on exam. - Labs - CXR 06/30/19 00:28 Labs CXR clear on my read Pt is well appearing, with normal vitals. Clinically stable for DC at this time. I discussed the physical exam findings, ancillary test results and final diagnoses with the patient. I answered all of the patient's questions. The patient was satisfied with the care received and felt comfortable with the discharge plan and treatment plan. The patient agrees to follow up with the primary care physician within 24-72 hours.
[2019-06-30] MEDS ORDERED: ACETAMINOPHEN 500 MG TABLET (FP) PO ONE (01:30)
[2019-06-30] MEDS ORDERED: ACETAMINOPHEN 325 MG TABLET (FP) ONE (01:40)
--- NOTE | 2019-06-30 11:25 | EKG ---
Test Reason : Blood Pressure : / mmHG Vent. Rate : 087 BPM Atrial Rate : 087 BPM P-R Int : 172 ms QRS Dur : 092 ms QT Int : 390 ms P-R-T Axes : 050 010 014 degrees QTc Int : 469 ms POOR DATA QUALITY, INTERPRETATION MAY BE ADVERSELY AFFECTED NORMAL SINUS RHYTHM T WAVE ABNORMALITY, CONSIDER ANTERIOR ISCHEMIA ABNORMAL ECG WHEN COMPARED WITH ECG OF 04-JUN-2019 17:12, NO SIGNIFICANT CHANGE WAS FOUND Confirmed by Sreedhar Sinha MD ([id number]) on 06/30/2019 11:25:31 AM Referred By: Confirmed By:Sreedhar Sinha MD
== END 2019-06-30 02:30 | disposition home or self-care (01) ==
LOC: JER 20:32
PROC: 3E0F7GC Introduction of Other Therapeutic Substance into Respiratory Tract, Via Natural or Artificial Opening (ICD-10-PCS; principal; 2019-06-29)
DX: R05 Cough (principal); R07.81 Pleurodynia; I10 Essential (primary) hypertension; E03.9 Hypothyroidism, unspecified; M54.5 Low back pain; G89.29 Other chronic pain; K21.9 Gastro-esophageal reflux disease without esophagitis
CPT/HCPCS: 36415; 71046-TC-FY; 80053; 84484; 85025; 93005; 93010; 99282-25

== ENCOUNTER 2019-07-03 16:42 | Emergency (ER) | payer OTHER ==
--- NOTE | 2019-07-03 16:50 | PDOC ---
Rapid Medical Evaluation Chief Complaint: Back Pain Time Seen by Provider: 07/03/19 16:45 Medical Evaluation: Allergies Allergy/AdvReac Type Severity Reaction Status Date / Time No Known Drug Allergies Allergy Verified 07/03/19 16:45 seasonal Allergy Mild Uncoded 07/03/19 16:45 08 16:46 I have performed a brief in-person evaluation of this patient. The patient presents with a chief complaint of: back pain x 1 week, + hx of back issues with radiation down left leg, no fevers/ no problems with bowels or bladder , no recent exercise change or trauma Pertinent physical exam findings: amb with no limp I have ordered the following: nothing The patient will proceed to the ED for further evaluation. 07/03/19 16:46 Discharge Disposition - Diagnosis Chronic low back pain - Referrals - Patient Instructions - Post Discharge Activity
[2019-07-03 16:53] VITALS: PULSE 65; TEMP 98; BMI 25.8
[2019-07-03] MEDS ORDERED: KETOROLAC TROMETHAMINE 30 MG/1 ML VIAL IM ONE (17:27)
[2019-07-03] MEDS ORDERED: CYCLOBENZAPRINE HCL 10 MG TABLET (FP) PO ONE (17:30)
[2019-07-03 17:31] VITALS: BP 102/60
--- NOTE | 2019-07-03 17:37 | PDOC ---
History of Present Illness - General Chief Complaint: Back Pain Stated Complaint: BACK PAIN Time Seen by Provider: 07/03/19 16:45 History Source: Patient Exam Limitations: No Limitations Past History - Past Medical History Allergies/Adverse Reactions: Allergies Allergy/AdvReac Type Severity Reaction Status Date / Time No Known Drug Allergies Allergy Verified 07/03/19 16:47 seasonal Allergy Mild Uncoded 07/03/19 16:47 Home Medications: Ambulatory Orders Chlorthalidone 25 mg PO DAILY 04/04/18 Gabapentin 600 mg PO BID 04/04/18 Losartan 50Mg/Hctz 12.5MG [Hyzaar -] 50 mg PO DAILY 04/04/18 Montelukast Sodium [Singulair] 10 mg PO DAILY 04/04/18 Acetaminophen with Codeine [Tylenol with Codeine #3 Tablet] 1 each PO HS PRN # 10 tablet MDD 1 tab 06/30/19 Omeprazole 20 mg PO DAILY 14 Days #14 tablet. 06/30/19 Cyclobenzaprine HCl [Flexeril 10 mg] 10 mg PO TID PRN #21 tablet 07/03/19 Anemia: No Asthma: No Cancer: No Cardiac Disorders: No CVA: No COPD: No CHF: No DVT: No Dementia: No Diabetes: No GI Disorders: Yes (GERD) Disorders: No HTN: Yes Hypercholesterolemia: No Liver Disease: No Seizures: No Thyroid Disease: Yes - Surgical History Abdominal Surgery: Yes (FIBROIDS REMOVED 1999) Appendectomy: No Cardiac Surgery: No Cholecystectomy: No Lung Surgery: No Neurologic Surgery: No Orthopedic Surgery: Yes (RIGHT TKR , LEFT KNEE REPLACEMENT) - Suicide/Smoking/Psychosocial Hx Smoking Status: No Smoking History: Never smoked Have you smoked in the past 12 months: No Number of Cigarettes Smoked Daily: 0 Hx Alcohol Use: No Drug/Substance Use Hx: No Substance Use Type: None Hx Substance Use Treatment: No Trauma Specific PMHX - Complaint Specific PMHX Arthritis: No Back Injury: Yes Neck Injury: No Hx Sacro Iliac Joint Dysfunction: No *Physical Exam - Vital Signs Last Vital Signs Temp Pulse Resp BP Pulse Ox 98.0 F 65 17 102/60 98 07/03/19 16:47 07/03/19 16:47 07/03/19 16:47 07/03/19 17:29 07/03/19 16:47 - Physical Exam General Appearance: No: Apparent Distress Neck: positive: Supple Respiratory/Chest: positive: Lungs Clear, Normal Breath Sounds. negative: Respiratory Distress Cardiovascular: positive: Regular Rhythm, Regular Rate, S1, S2. negative: Murmur Gastrointestinal/Abdominal: positive: Soft. negative: Tender Musculoskeletal: positive: Vertebral Tenderness (+lumbar spine). negative: Muscle Spasm Neurologic: positive: Fully Oriented, Alert, Normal Mood/Affect, Motor Strength 5/5, Other (ambulatory) Medical Decision Making - Medical Decision Making 59 y/o F hx HTN, hypothyroidism, chronic back back (due to sciatica per patient ) presents with LBP radiating down L leg x 1 week. Has had this problem in the past and states usually feels better with a shot. Follows with neurologist, Dr. Bernal, whom she last saw last week. Has not had a recent MRI of her back but is pending to get one done this month; has yet to schedule it. Is currently taking Nabumetone and Gabapentin for pain. Denies trauma, fever, sob, cp, abd pain,vomiting, bowel/bladder incontinence, saddle/groin paresthesia, weakness of extremities. Acute on chronic back pain No current evidence of weakness of exam; ambulatory Given Toradol and Flexeril 07/03/19 17:34 *DC/Admit/Observation/Transfer Diagnosis at time of Disposition: Chronic low back pain Qualifiers: Back pain laterality: unspecified Sciatica presence: with sciatica Sciatica laterality: sciatica of left side Qualified Code(s): M54.42 - Lumbago with sciatica, left side; G89.29 - Other chronic pain - Discharge Dispostion Disposition: HOME Condition at time of disposition: Stable Decision to Admit order: No - Prescriptions Prescriptions: Cyclobenzaprine HCl [Flexeril 10 mg] 10 mg PO TID PRN #21 tablet PRN Reason: Muscle Spasms - Referrals Referrals: Brett Bernal MD [Staff Physician] - 2 Days - Patient Instructions Printed Discharge Instructions: DI for Back Pain With Sciatica Additional Instructions: Thank you for choosing [facility]. It was a pleasure taking care of you. Take Flexeril as needed for muscle spasms. This medication may make you drowsy Continue follow-up with your neurologist Schedule your MRI of the back Return to the Emergency Department if your symptoms worsen or persist, you have shortness of breath, chest pain, severe abdominal pain, vomiting, weakness of extremities, unable to walk, numbness around groin, unable to control bowel or bladder movements or other concerning symptoms. - Post Discharge Activity
[2019-07-03] MEDS ORDERED: CYCLOBENZAPRINE HCL 10 MG TABLET (FP) ONE (17:49)
[2019-07-03] MEDS ORDERED: KETOROLAC TROMETHAMINE 30 MG/1 ML VIAL ONE (17:49)
== END 2019-07-03 18:19 | disposition home or self-care (01) ==
LOC: JERFT 16:42
PROC: 3E0233Z Introduction of Anti-inflammatory into Muscle, Percutaneous Approach (ICD-10-PCS; principal; 2019-07-03)
DX: G89.29 Other chronic pain (principal); M54.42 Lumbago with sciatica, left side; E03.9 Hypothyroidism, unspecified; I10 Essential (primary) hypertension
CPT/HCPCS: 96372; 99282-25

== ENCOUNTER 2020-06-19 23:00 | Inpatient (IN) | payer OTHER ==
--- NOTE | 2020-06-19 23:08 | PDOC ---
Rapid Medical Evaluation Time Seen by Provider: 06/19/20 23:03 Medical Evaluation: Allergies Allergy/AdvReac Type Severity Reaction Status Date / Time No Known Drug Allergies Allergy Verified 07/03/19 16:47 seasonal Allergy Mild Uncoded 07/03/19 16:47 06/19/20 23:03 I have performed a brief in-person evaluation of this patient. CC: upper lip swelling x30 minutes; takes enalapril PE: upper lip swelling. No SL edema. No drooling. No stridor. Lungs CTAB. Orders: labs, T&S, Pepcid, benadryl, solumedrol Patient will proceed to ED for further evaluation. 06/19/20 23:07 Discharge Disposition - Diagnosis Angioedema - Referrals - Patient Instructions - Post Discharge Activity
[2020-06-19] MEDS ORDERED: methylPREDNISolone NA SUCC 125 MG/2 ML VIAL IVPUSH ONE (23:09)
[2020-06-19] MEDS ORDERED: FAMOTIDINE 20 MG/50 ML IVPB 20 MG/50 ML MG IVPB ONE ×2 (23:09→23:16)
[2020-06-19] MEDS ORDERED: methylPREDNISolone NA SUCC 125 MG/2 ML VIAL ONE (23:16)
[2020-06-19 23:33] LABS: BASO % 0.7 % (0-2.0); EOS % 4.3 % (0-4.5); HEMATOCRIT 36.6 % (32.4-45.2); HEMOGLOBIN 11.9 GM/dL (10.7-15.3); LYMPH % 37.5 % (8-40); MCH 26.2 pg (25.7-33.7); MCHC 32.4 g/dl (32.0-36.0); MEAN CELL VOLUME 80.7 fl (80-96); MEAN PLT VOLUME 7.3 fl (7.5-11.1); MONO % 8.3 % (3.8-10.2); NEUT % 49.2 % (42.8-82.8); PLATELET COUNT 310 K/MM3 (134-434); RBC 4.54 M/mm3 (3.60-5.2); RDW 14.9 % (11.6-15.6); WHITE BLOOD COUNT 7.2 K/mm3 (4.0-10.0)
[2020-06-19 23:54] LABS: ALBUMIN 4.1 g/dl (3.4-5.0); BILIRUBIN,TOTAL 0.4 mg/dL (0.2-1); CALCIUM 9.6 mg/dL (8.5-10.1); CREATININE 0.9 mg/dL (0.55-1.3); POTASSIUM 3.5 mmol/L (3.5-5.1); TOT PROT 7.7 g/dl (6.4-8.2)
--- NOTE | 2020-06-20 00:14 | PDOC ---
History of Present Illness - General Chief Complaint: Edema Stated Complaint: ALLERGIC REACTION Time Seen by Provider: 06/19/20 23:03 History Source: Patient Exam Limitations: No Limitations - History of Present Illness Initial Comments: Jacey Key is a 60 F with a PMH of HTN and GERD presents with upper lip swelling for 1D. She reports that she was shopping all day today and after returning home, she noticed upper lip swelling in the bathroom mirror, which prompt her to ED. She reports no known allergies to foods or medications. She did not eat anything new, or tried any new products on her lip today. She reports for the past three weeks she has had a dry, hacking cough. She went to see her PCP codey Tracy for cough, where she received promethazine cough syrup + Spiriva inhaler + doxycycline, 2 weeks ago. She also reports that she started her BP meds Enalapril 1 month ago. No previous episodes, She reports that last week her mother also experienced similar symptoms with lip and facial swelling, with no identified source. She denies any, throat swelling, throat pain, wheeze, difficulty breath, SOB, chest pain, extremity swellings, palpitations, fever, chills, diarrhea, or dysuria. 06/20/20 00:00 06/20/20 00:16 06/20/20 00:54 Past History - Travel History Traveled outside of the country in the last 30 days: No - Medical History Allergies/Adverse Reactions: Allergies Allergy/AdvReac Type Severity Reaction Status Date / Time No Known Drug Allergies Allergy Verified 07/03/19 16:47 seasonal Allergy Mild Uncoded 07/03/19 16:47 Home Medications: Ambulatory Orders Chlorthalidone 25 mg PO DAILY 04/04/18 Gabapentin 600 mg PO BID 04/04/18 Losartan 50Mg/Hctz 12.5MG [Hyzaar -] 50 mg PO DAILY 04/04/18 Montelukast Sodium [Singulair] 10 mg PO DAILY 04/04/18 Acetaminophen with Codeine [Tylenol with Codeine #3 Tablet] 1 each PO HS PRN #10 tablet MDD 1 tab 06/30/19 Omeprazole 20 mg PO DAILY 14 Days #14 tablet. 06/30/19 Cyclobenzaprine HCl [Flexeril 10 mg] 10 mg PO TID PRN #21 tablet 07/03/19 Anemia: No Asthma: No Cancer: No Cardiac Disorders: No CVA: No COPD: No CHF: No DVT: No Dementia: No Diabetes: No GI Disorders: Yes (GERD) Disorders: No HTN: Yes Hypercholesterolemia: No Liver Disease: No Seizures: No Thyroid Disease: Yes - Surgical History Abdominal Surgery: Yes (FIBROIDS REMOVED 1999) Appendectomy: No Cardiac Surgery: No Cholecystectomy: No Lung Surgery: No Neurologic Surgery: No Orthopedic Surgery: Yes (RIGHT TKR /2012, LEFT KNEE REPLACEMENT) - Psycho-Social/Smoking History Smoking Status: No Smoking History: Never smoked Have you smoked in the past 12 months: No Number of Cigarettes Smoked Daily: 0 - Substance Abuse Hx (Audit-C & DAST Scrn) How often the patient has a drink containing alcohol: Never Score: In Men: 4 or > Positive; In Women: 3 or > Positive: 0 Screen Result (Pos requires Nsg. Audit-10AR): Negative In the last yr the pt used illegal drug/Rx for NonMed reason: No Score: Yes response is considered Positive: 0 Screen Result (Positive result requires Nsg. DAST-10): Negative Review of Systems - Review of Systems Able to Perform ROS?: Yes Is the patient limited [place] proficient: No Constitutional: No: Chills, Fever, Weakness HEENTM: No: Blurred Vision, Nose Pain, Nose Congestion, Throat Pain, Throat Swe lling, Difficulty Swallowing, Mouth Swelling Respiratory: Yes: Cough. No: Shortness of Breath, SOB with Exertion, SOB at Rest, Wheezing, Productive cough Cardiac (ROS): Yes: Edema (chronic LLE lymphedema). No: Chest Pain, Palpitations, Chest Tightness ABD/GI: No: Constipated, Diarrhea, Difficulty Swallowing, Poor Appetite, Poor Fluid Intake, Abdominal cramping : No: Burning, Dysuria Musculoskeletal: Yes: Back Pain. No: Joint Pain, Joint Swelling, Muscle Weakness Integumentary: No: Bruising, Change in Color, Erythema, Pruritus, Rash Neurological: No: Headache, Numbness, Tingling *Physical Exam - Vital Signs Last Vital Signs Temp Pulse Resp BP Pulse Ox 98.2 F 91 H 19 145/77 99 06/19/20 23:03 06/19/20 23:03 06/19/20 23:03 06/19/20 23:03 06/19/20 23:03 - Physical Exam General Appearance: Yes: Nourished, Appropriately Dressed HEENT: positive: EOMI, GEOVANNA, Symmetrical, Pharynx Normal (ulvula midline, no swelling), Other (angioedema of the upper lip, no discoloration, no tenderness to palpation). negative: Nasal Congestion, Rhinorrhea Neck: positive: Trachea midline, Supple. negative: Tender, Carotid bruit Respiratory/Chest: positive: Lungs Clear, Normal Breath Sounds. negative: Respiratory Distress, Crackles, Rales, Rhonchi, Wheezing Cardiovascular: positive: Regular Rhythm, S1, S2, Edema (LLE chronic edema), Tachycardia. negative: JVD, Murmur Vascular Pulses: Carotid (R): 2+, Carotid (L): 2+, Dorsalis-Pedis (R): 1+, Doralis-Pedis (L): 1+ Gastrointestinal/Abdominal: positive: Normal Bowel Sounds, Soft. negative: Tend er, Distended, Guarding Musculoskeletal: positive: Normal Inspection Extremity: positive: Normal Capillary Refill, Pedal Edema (chronic LLE edema). negative: Swelling, Calf Tenderness Integumentary: positive: Dry, Warm, Swelling (upper lip). negative: Erythema, Rash Neurologic: positive: Fully Oriented, Alert, Motor Strength 5/5 ED Treatment Course - LABORATORY CBC & Chemistry Diagram: 06/19/20 23:25 06/19/20 23:25 - ADDITIONAL ORDERS Additional order review: Laboratory Results 06/19/20 23:25 Sodium 141 Potassium 3.5 Chloride 109 H Carbon Dioxide 25 Anion Gap 8 BUN 11.0 Creatinine 0.9 Est GFR (CKD-EPI)AfAm 79.42 Est GFR (CKD-EPI)NonAf 68.53 Random Glucose 106 Calcium 9.6 Total Bilirubin 0.4 AST 13 L ALT 20 Alkaline Phosphatase 96 Total Protein 7.7 Albumin 4.1 06/19/20 23:25 RBC 4.54 MCV 80.7 MCHC 32.4 RDW 14.9 MPV 7.3 L Neutrophils % 49.2 Lymphocytes % 37.5 D Monocytes % 8.3 Eosinophils % 4.3 Basophils % 0.7 - RADIOLOGY Radiology Studies Ordered: Category Date Time Status CXR [CHEST PA & LAT] [RAD] Stat Radiology 06/19/20 23:58 Ordered - Medications Given in the ED: ED Medications Discontinued Medications Generic Name Dose Route Start Last Admin Trade Name Stephon PRN Reason Stop Dose Admin Diphenhydramine HCl 50 mg 06/19/20 23:09 06/19/20 23:25 Benadryl Injection - IVPUSH 06/19/20 23:10 50 mg ONCE ONE Administration Famotidine/Sodium Chloride 20 mg in 50 mls @ 100 mls/hr 06/19/20 23:09 06/19/20 23:25 Pepcid 20 Mg Premixed Ivpb - IVPB 06/19/20 23:38 100 mls/hr ONCE ONE Administration Methylprednisolone Sodium Succinate 125 mg 06/19/20 23:09 06/19/20 23:25 Solu-Medrol - IVPUSH 06/19/20 23:10 125 mg ONCE ONE Administration Medical Decision Making - Medical Decision Making 60 F with a PMH of HTN and GERD presents with upper lip swelling for 1D. #Angioedema most likely 2/2 to SOFYA-I - patient started enalapril 1 month ago, dry hacking cough for 3 weeks - Pt recieved Benadryl IV 50mg + Pepcid 20 mg + solumedrol 125mg - CXR - CBC - CMp - UA - EKG 06/20/20 00:22 Discharge - Discharge Information Problems reviewed: Yes Clinical Impression/Diagnosis: Angioedema - Admission Yes - Follow up/Referral Referrals: Codey Newton MD, MD [Primary Care Provider] - - Patient Discharge Instructions - Post Discharge Activity
--- NOTE | 2020-06-20 00:25 | PDOC ---
Documentation entered by Antoinette Corado SCRIBE, acting as scribe for Thalia Alegre MD. Thalia Alegre MD: This documentation has been prepared by the aribe, Antoinette Corado SCRIBE, under my direction and personally reviewed by me in its entirety. I confirm that the documentation accurately reflects all work, treatment, procedures, and medical decision making performed by me. Attending Attestation - Resident Resident Name: [email or web address] - ED Attending Attestation I have performed the following: I have examined & evaluated the patient, The case was reviewed & discussed with the resident, I agree w/resident's findings & plan, Exceptions are as noted - HPI HPI: 06/19/20 23:33 Patient is a 60 year old female with a significant past medical history of hypertension and GERD, who presents to the ED with angiodema on upper lip since earlier today. Patient stated that her mother experienced similiar symptoms last week (facial swelling). Patiet also endorses dry/hacking cough x3 weeks. Patient denies: fever, chills, wheezing, SOB, respiratory distress, throat swelling, throat pain, chest pain, palpitations, diarrhea, dysuria, extremity edema, or any other related symptoms. Allergies: NKDA, also reports no food allergies - Physicial Exam PE: 06/20/20 00:21 obese 60 yo female p/w angioedema involving her maxillary lip head ncat neck supple there is significant swelling of her upper lip Oral exam: uvula is midline ,no edema lungs cta b/l cvs [id number] abdomen protuberant extremities no edema skin warm and dry neuro axox3 - Medical Decision Making 06/20/20 01:44 pt has no respiratory distress, no problems swallowing at this time will admit for airway watch imp angioedema Discharge - Discharge Information Problems reviewed: Yes Clinical Impression/Diagnosis: Angioedema - Follow up/Referral - Patient Discharge Instructions - Post Discharge Activity
[2020-06-20 01:05] LABS: URINE APPEARANCE CLEAR; URINE BILIRUBIN NEGATIVE (NEGATIVE); URINE COLOR YELLOW; URINE GLUCOSE (UA) NEGATIVE (NEGATIVE); URINE KETONE NEGATIVE (NEGATIVE); URINE LEUK ESTERASE NEGATIVE (NEGATIVE); URINE NITRITE NEGATIVE (NEGATIVE); URINE PROTEIN NEGATIVE (NEGATIVE)
[2020-06-20] MEDS ORDERED: DEXTROSE 5%-0.45% SALINE 1,000 ML IV SCH (01:30)
[2020-06-20 03:37] LABS: ERYTHROCYTE SEDIMENTATION RATE 9 mm/hr (0-30)
[2020-06-20 03:42] VITALS: BMI 42.4
--- NOTE | 2020-06-20 05:18 | HP ---
Admitting History and Physical - Primary Care Physician PCP: Codey Newton MD - Admission Chief Complaint: Swollen Lip History of Present Illness: This is a 60 y/o female with a significant past medical history of Hypertension, GERD, Hypothyroidism, Lymphedema. Who presents to the ED with swelling to her upper lip since yesterday afternoon. Patient reports feeling tightness to her mouth and looked in the mirror seeing her upper lip abnormally swollen. patient reports being started recently on Enalapril, Norvasc, Metformin and ABX. She reports having a dry "hacking cough" x 3 weeks, seeing her PCP- placed on ABX, cough medicine without improvement. Patient denies eating new foods, new facial products, colognes/perfume, soap, detergent. Patient stated that her mother experienced similar symptoms last week (facial swelling). Patient denies: fever, chills, wheezing, SOB, respiratory distress, throat swelling, throat pain, chest pain, palpitations, diarrhea, dysuria. History Source: Patient Limitations to Obtaining History: No Limitations - Past Medical History Cardiovascular: Yes: HTN ...LMP Comment: 1999 - Past Surgical History Past Surgical History: Yes: Joint Replacement (bilateral knee replacement) Additional Past Surgical History: Fibroid Removal - Smoking History Smoking history: Never smoked Have you smoked in the past 12 months: No Aproximately how many cigarettes per day: 0 - Alcohol/Substance Use Hx Alcohol Use: No History of Substance Use: reports: None - Social History Usual Living Arrangement: Yes: With Parent ADL: Independent Occupation: Unemployed History of Recent Travel: No Home Medications - Allergies Allergies/Adverse Reactions: Allergies Allergy/AdvReac Type Severity Reaction Status Date / Time No Known Drug Allergies Allergy Verified 07/03/19 16:47 seasonal Allergy Mild Uncoded 07/03/19 16:47 - Home Medications Home Medications: Ambulatory Orders Gabapentin 600 mg PO BID 04/04/18 Amlodipine Besylate 5 mg PO DAILY 06/20/20 Cyclobenzaprine HCl [Flexeril 10 mg] 5 mg PO PRN PRN 06/20/20 Enalapril Maleate [Vasotec] 20 mg PO DAILY 06/20/20 Levothyroxine [Synthroid -] 100 mcg PO DAILY 06/20/20 Metformin HCl [Glucophage] 500 mg PO BID 06/20/20 Nabumetone 500 mg PO DAILY 08/03/20 Family Medical History Family Hx Nuerologic Problems: Mother (Dementia, Benign Tumor) Physical Examination Vital Signs: Vital Signs Temperature 97.2 F L 06/20/20 03:00 Pulse Rate 84 06/20/20 03:00 Respiratory Rate 20 06/20/20 03:00 Blood Pressure 142/93 06/20/20 03:00 O2 Sat by Pulse Oximetry (%) 100 06/20/20 03:28 Constitutional: Yes: Well Nourished, No Distress, Calm, Obese Eyes: Yes: WNL, Conjunctiva Clear, EOM Intact, PERRL HENT: Yes: Atraumatic, Normocephalic, Other ( grossly edematous upper lip). No: Drooling, Hoarseness, Pharyngeal Erythema, Tonsillar Exudate Neck: Yes: WNL, Supple, Trachea Midline Cardiovascular: Yes: Regular Rate and Rhythm, S1, S2 Respiratory: Yes: WNL, Regular, CTA Bilaterally Gastrointestinal: Yes: WNL, Normal Bowel Sounds, Soft, Abdomen, Obese ...Rectal Exam: Yes: Deferred Renal/: Yes: WNL Breast(s): Yes: WNL Musculoskeletal: Yes: WNL Extremities: Yes: WNL Edema: Yes Edema: LLE: 2+, RLE: 1+ Peripheral Pulses WNL: Yes Neurological: Yes: WNL, Alert, Oriented, Cran Nerves II-XII Intact ...Motor Strength: WNL Psychiatric: Yes: WNL, Alert, Oriented Labs: CBC, BMP 06/19/20 23:25 06/19/20 23:25 Laboratory Results - last 24 hr 06/19/20 06/19/20 06/20/20 23:25 23:25 00:20 WBC 7.2 RBC 4.54 Hgb 11.9 Hct 36.6 MCV 80.7 MCH 26.2 MCHC 32.4 RDW 14.9 Plt Count 310 MPV 7.3 L Absolute Neuts (auto) 3.5 Neutrophils % 49.2 Lymphocytes % 37.5 D Monocytes % 8.3 Eosinophils % 4.3 Basophils % 0.7 Nucleated RBC % 0 ESR 9 Sodium 141 Potassium 3.5 Chloride 109 H Carbon Dioxide 25 Anion Gap 8 BUN 11.0 Creatinine 0.9 Est GFR (CKD-EPI)AfAm 79.42 Est GFR (CKD-EPI)NonAf 68.53 POC Glucometer Random Glucose 106 Calcium 9.6 Total Bilirubin 0.4 AST 13 L ALT 20 Alkaline Phosphatase 96 Total Protein 7.7 Albumin 4.1 Urine Color Yellow Urine Appearance Clear Urine pH 5.0 Ur Specific [place] 1.037 H Urine Protein Negative Urine Glucose (UA) Negative Urine Ketones Negative Urine Blood Negative Urine Nitrite Negative Urine Bilirubin Negative Urine Urobilinogen 1.0 Ur Leukocyte Esterase Negative 06/20/20 06:09 WBC RBC Hgb Hct MCV MCH MCHC RDW Plt Count MPV Absolute Neuts (auto) Neutrophils % Lymphocytes % Monocytes % Eosinophils % Basophils % Nucleated RBC % ESR Sodium Potassium Chloride Carbon Dioxide Anion Gap BUN Creatinine Est GFR (CKD-EPI)AfAm Est GFR (CKD-EPI)NonAf POC Glucometer 147 Random Glucose Calcium Total Bilirubin AST ALT Alkaline Phosphatase Total Protein Albumin Urine Color Urine Appearance Urine pH Ur Specific [place] Urine Protein Urine Glucose (UA) Urine Ketones Urine Blood Urine Nitrite Urine Bilirubin Urine Urobilinogen Ur Leukocyte Esterase Current Medications Generic Name Dose Route Start Last Admin Trade Name Freq PRN Reason Stop Dose Admin Amlodipine Besylate 5 mg 06/20/20 10:00 Norvasc - PO DAILY ODILIA Diphenhydramine HCl 25 mg 06/20/20 05:00 Benadryl Injection - IVPUSH Q6H PRN Allergic Reaction- Swelling Enoxaparin Sodium 40 mg 06/20/20 10:00 Lovenox - SQ DAILY ODILIA Gabapentin 600 mg 06/20/20 10:00 Neurontin - PO BID ODILIA Dextrose/Sodium Chloride 1,000 mls @ 60 mls/hr 06/20/20 01:30 06/20/20 02:31 D5-1/2ns - IV 60 mls/hr ASDIR ODILIA Administration Famotidine/Sodium Chloride 20 mg in 50 mls @ 100 mls/hr 06/20/20 10:00 Pepcid 20 Mg Premixed Ivpb - IVPB BID ODILIA Levothyroxine Sodium 100 mcg 06/20/20 07:00 06/20/20 06:39 Synthroid - PO 100 mcg DAILY@0700 ODILIA Administration Methylprednisolone Sodium Succinate 40 mg 06/20/20 10:00 Solu-Medrol - IVPUSH Q8H-IV ODILIA Imaging - Results Chest X-ray: Image Reviewed EKG: Image Reviewed Problem List - Problems (1) Angioedema Assessment/Plan: Likely secondary to medication vs HAE On exam: no airway compromise, no drooling Benadryl, Solumederol, Pepcid given in ED, will continue Hold Enalapril, Metformin Appreciate Cardiology consult Elevate HOB Aspiration Precautions NPO Add on ESR, C4 Monitor CBC, CMP Monitor vitals Code(s): T78.3XXA - ANGIONEUROTIC EDEMA, INITIAL ENCOUNTER (2) HTN (hypertension) Assessment/Plan: stable Monitor BP Continue Amlodipine Besylate Hold Enalapril 2/2 Angioedema Monitor renal function Code(s): I10 - ESSENTIAL (PRIMARY) HYPERTENSION (3) Diabetes mellitus Assessment/Plan: stable BGMs Hold Metformin 2/2 Angioedema Hold ISS, until diet resumed Code(s): E11.9 - TYPE 2 DIABETES MELLITUS WITHOUT COMPLICATIONS (4) Hypothyroidism Assessment/Plan: stable Continue Levothyroxine TSH in am Code(s): E03.9 - HYPOTHYROIDISM, UNSPECIFIED (5) Lymphedema of lower extremity Assessment/Plan: Elevate extremities Code(s): I89.0 - LYMPHEDEMA, NOT ELSEWHERE CLASSIFIED Assessment/Plan This is a 60 y/o female with a significant past medical history of Hypertension, GERD, Hypothyroidism, Lymphedema. Admitted to [facility] for Angioedema of Upper Lip for further evaluation of their emergent condition. Plan: See Problem List FEN D50.45%NS@60ml/hr Replete lytes NPO DVT ppx OOB SCDs Lovenox SQ Dispo: Requires Inpatient Care Visit type - Emergency Visit Emergency Visit: Yes ED Registration Date: 06/19/20 Care time: The patient presented to the Emergency Department on the above date and was hospitalized for further evaluation of their emergent condition. - New Patient This patient is new to me today: Yes Date on this admission: 06/20/20 - Critical Care Critical Care patient: No
[2020-06-20] MEDS ORDERED: LEVOTHYROXINE NA 100 MCG TABLET (FP) PO SCH (07:00)
[2020-06-20 07:42] LABS: BASO % 0.3 % (0-2.0); EOS % 0.1 % (0-4.5); HEMATOCRIT 36.9 % (32.4-45.2); HEMOGLOBIN 11.9 GM/dL (10.7-15.3); LYMPH % 17.8 % (8-40); MCH 25.8 pg (25.7-33.7); MCHC 32.1 g/dl (32.0-36.0); MEAN CELL VOLUME 80.2 fl (80-96); MEAN PLT VOLUME 7.5 fl (7.5-11.1); MONO % 1.5 % (3.8-10.2); NEUT % 80.3 % (42.8-82.8); PLATELET COUNT 306 K/MM3 (134-434); RDW 14.8 % (11.6-15.6)
[2020-06-20 08:15] LABS: BLOOD UREA NITROGEN 10.5 mg/dL (7-18); CALCIUM 9.2 mg/dL (8.5-10.1); CREATININE 0.9 mg/dL (0.55-1.3)
[2020-06-20 08:26] LABS: BILIRUBIN,TOTAL 0.5 mg/dL (0.2-1); TOT PROT 7.4 g/dl (6.4-8.2)
--- NOTE | 2020-06-20 09:22 | CON.CARD ---
Consult Consult Specialty:: cardiology Reason for Consultation:: Angioedema - History of Present Illness History of Present Illness: 60 y/o female with past medical history of Hypertension, GERD, Hypothyroidism, Lymphedema. Who presents to the ED with swelling to her upper lip since yesterday afternoon. patient was started on ACEI about 7 months ago. No issues in past on ARB. reports being on Enalapril, Norvasc, Metformin and ABX. There is no history of CHF or cardiac disease. CXR is clear - Past Medical History Cardio/Vascular: Yes: HTN ...LMP Comment: 1999 - Past Surgical History Past Surgical History: Yes: Joint Replacement (bilateral knee replacement) - Alcohol/Substance Use Hx Alcohol Use: No History of Substance Use: reports: None - Smoking History Smoking history: Never smoked Have you smoked in the past 12 months: No Aproximately how many cigarettes per day: 0 - Social History ADL: Independent Occupation: Unemployed History of Recent Travel: No Home Medications - Allergies Allergies/Adverse Reactions: Allergies Allergy/AdvReac Type Severity Reaction Status Date / Time No Known Drug Allergies Allergy Verified 07/03/19 16:47 seasonal Allergy Mild Uncoded 07/03/19 16:47 - Home Medications Home Medications: Ambulatory Orders Gabapentin 600 mg PO BID 04/04/18 Cyclobenzaprine HCl [Flexeril 10 mg] 5 mg PO PRN PRN 06/20/20 Levothyroxine [Synthroid -] 100 mcg PO DAILY 06/20/20 Metformin HCl [Glucophage] 500 mg PO BID 06/20/20 Nabumetone 500 mg PO DAILY 06/20/20 Home Medications (free text): enalapril Review of Systems - Review of Systems Constitutional: reports: No Symptoms Eyes: reports: No Symptoms HENT: reports: Mouth Swelling. denies: Difficult Swallowing, Ear Pain, Gingival Bleeding, Hearing Loss Neck: reports: No Symptoms Cardiovascular: reports: No Symptoms. denies: Chest Pain, Edema, Palpitations, Shortness of Breath Respiratory: reports: Cough Genitourinary: reports: No Symptoms Breasts: reports: No Symptoms Reported Musculoskeletal: reports: No Symptoms Integumentary: reports: No Symptoms Neurological: reports: No Symptoms Endocrine: reports: No Symptoms Vital Signs: Vital Signs Temperature 97.6 F 06/20/20 06:23 Pulse Rate 72 06/20/20 06:23 Respiratory Rate 20 06/20/20 06:23 Blood Pressure 145/85 06/20/20 06:23 O2 Sat by Pulse Oximetry (%) 99 06/20/20 06:23 Constitutional: Yes: Well Nourished, No Distress, Calm Eyes: Yes: Conjunctiva Clear, EOM Intact HENT: Yes: Atraumatic, Normocephalic Neck: Yes: Supple, Trachea Midline Respiratory: Yes: Regular, CTA Bilaterally Gastrointestinal: Yes: Normal Bowel Sounds, Soft Cardiovascular: Yes: Regular Rate and Rhythm JVD: No Carotid Bruit: No PMI: Non-Displaced Heart Sounds: Yes: S1, S2 Murmur: No: Systolic Murmur, Diastolic Murmur Edema: No - Other Data Labs, Other Data: CBC, BMP 06/20/20 06:53 06/20/20 06:[address] T changes Imaging - Results Chest X-ray: Report Reviewed Problem List - Problems (1) Angioedema Code(s): T78.3XXA - ANGIONEUROTIC EDEMA, INITIAL ENCOUNTER (2) HTN (hypertension) Code(s): I10 - ESSENTIAL (PRIMARY) HYPERTENSION Assessment/Plan Hypertensive female recently switched to ACEI from ARB and admitted with angioedema. Swelling is improving. Angioedema likely due to ACEI and is discontinued. Pt is allergic to ACEI and this will need to be avoided in the future. She may use CCB or diuretic for BP control. There is no known cardiac disease history. If additional BP therapy is needed, or if renal protection is a consideration, can consider ARB in the future. Will see as needed.
[2020-06-20] MEDS: amLODIPine BESYLATE 5 MG TABLET (FP) PO SCH ×2 (09:50→10:23)
--- NOTE | 2020-06-20 09:54 | EKG ---
Test Reason : Blood Pressure : / mmHG Vent. Rate : 080 BPM Atrial Rate : 080 BPM P-R Int : 172 ms QRS Dur : 078 ms QT Int : 386 ms P-R-T Axes : 034 005 006 degrees QTc Int : 445 ms NORMAL SINUS RHYTHM MINIMAL VOLTAGE CRITERIA FOR LVH, MAY BE NORMAL VARIANT NONSPECIFIC ST AND T WAVE ABNORMALITY ABNORMAL ECG WHEN COMPARED WITH ECG OF 29-JUN-2019 20:42, NO SIGNIFICANT CHANGE WAS FOUND Confirmed by Guillermo Dunn ([id number]) on 06/20/2020 9:53:53 AM Referred By: Confirmed By:Guillermo Dunn
[2020-06-20] MEDS ORDERED: GABAPENTIN 300 MG CAPSULE PO SCH (10:00)
[2020-06-20] MEDS ORDERED: FAMOTIDINE 20 MG/50 ML IVPB 20 MG/50 ML MG IVPB SCH (10:00)
[2020-06-20] MEDS ORDERED: methylPREDNISolone NA SUCC 40 MG/1 ML VIAL IVPUSH SCH (10:00)
[2020-06-20] MEDS ORDERED: ENOXAPARIN NA (PORCINE) 40 MG/0.4 ML DISP.SYRIN SQ SCH (10:00)
[2020-06-20] MEDS ORDERED: PATIENT'S OWN MEDICATION (NON-FORMULARY) (Gabapentin [Gabapentin] 600 MG) PO SCH (10:00)
[2020-06-20 10:28] VITALS: PULSE 89; TEMP 97.9
--- NOTE | 2020-06-20 11:24 | PN ---
Progress Note, Physician Chief Complaint: Angioedema History of Present Illness: NAD Upper lip swelling improved - Current Medication List Current Medications: Active Medications Amlodipine Besylate (Norvasc -) 5 mg PO DAILY [facility] Last Admin: 06/20/20 10:23 Dose: Not Given Documented by: Diphenhydramine HCl (Benadryl Injection -) 25 mg IVPUSH Q6H PRN PRN Reason: Allergic Reaction- Swelling Last Admin: 06/20/20 09:53 Dose: 25 mg Documented by: Enoxaparin Sodium (Lovenox -) 40 mg SQ DAILY [facility] Last Admin: 06/20/20 09:50 Dose: 40 mg Documented by: Gabapentin (Neurontin -) 600 mg PO BID [facility] Last Admin: 06/20/20 09:50 Dose: 600 mg Documented by: Dextrose/Sodium Chloride (D5-1/2ns -) 1,000 mls @ 60 mls/hr IV ASDIR [facility] Last Admin: 06/20/20 02:31 Dose: 60 mls/hr Documented by: Famotidine/Sodium Chloride (Pepcid 20 Mg Premixed Ivpb -) 20 mg in 50 mls @ 100 mls/hr IVPB BID [facility] Last Admin: 06/20/20 09:51 Dose: 100 mls/hr Documented by: Levothyroxine Sodium (Synthroid -) 100 mcg PO DAILY@0700 [facility] Last Admin: 06/20/20 06:39 Dose: 100 mcg Documented by: Methylprednisolone Sodium Succinate (Solu-Medrol -) 40 mg IVPUSH Q8H-IV [facility] Last Admin: 06/20/20 09:50 Dose: 40 mg Documented by: - Objective Vital Signs: Vital Signs Temperature 97.9 F 06/20/20 10:00 Pulse Rate 89 06/20/20 10:00 Respiratory Rate 18 06/20/20 10:00 Blood Pressure 151/89 06/20/20 10:00 O2 Sat by Pulse Oximetry (%) 97 06/20/20 10:00 Constitutional: Yes: Well Nourished, No Distress, Calm Cardiovascular: Yes: Regular Rate and Rhythm Respiratory: Yes: Regular, CTA Bilaterally Gastrointestinal: Yes: Normal Bowel Sounds, Soft Genitourinary: Yes: WNL Musculoskeletal: Yes: WNL Extremities: Yes: WNL Edema: No Peripheral Pulses WNL: Yes Neurological: Yes: Alert, Oriented Psychiatric: Yes: Alert, Oriented Labs: CBC, BMP 06/20/20 06:53 06/20/20 06:53 Problem List - Problems (1) Angioedema Assessment/Plan: -D/C ACEI -Await to start ARB until angiedema is resolved- can be done outpatient -Medrol dose pack -Benadryl 50 mg po HS Problems reviewed: Yes Code(s): T78.3XXA - ANGIONEUROTIC EDEMA, INITIAL ENCOUNTER (2) Diabetes mellitus Assessment/Plan: -Continue metformin Problems reviewed: Yes Code(s): E11.9 - TYPE 2 DIABETES MELLITUS WITHOUT COMPLICATIONS (3) HTN (hypertension) Assessment/Plan: -Start HCTZ 25 mg po daily -Start Nifedipine ER 30 mg po daily -Seen by cardiology- agrees with plan Problems reviewed: Yes Code(s): I10 - ESSENTIAL (PRIMARY) HYPERTENSION (4) Hypothyroidism Assessment/Plan: -Continue Levothyroxine Problems reviewed: Yes Code(s): E03.9 - HYPOTHYROIDISM, UNSPECIFIED Assessment/Plan See problem list May dc home, follow up outpatient with PCP
[2020-06-20] MEDS ORDERED: HYDROCHLOROTHIAZIDE 25 MG TABLET (FP) PO SCH (12:15)
[2020-06-20] MEDS ORDERED: NIFEdipine E.R. 30 MG TABLET PO SCH (12:30)
[2020-06-20 14:59] VITALS: BP 130/81
== END 2020-06-20 14:12 | disposition home or self-care (01) | DRG 811 ==
LOC: JER 23:00 → JERBED 06-20 01:35 → J5S 06-20 02:51
PROVIDERS: ADMIT Internal Medicine; ATTEND Family Medicine
DX: T78.3XXA Angioneurotic edema, initial encounter (principal); T46.4X5A Adverse effect of angiotensin-converting-enzyme inhibitors, initial encounter; E03.9 Hypothyroidism, unspecified; I10 Essential (primary) hypertension; E11.9 Type 2 diabetes mellitus without complications; E66.9 Obesity, unspecified; Z68.41 Body mass index [BMI] 40.0-44.9, adult; I89.0 Lymphedema, not elsewhere classified; K21.9 Gastro-esophageal reflux disease without esophagitis; Z96.641 Presence of right artificial hip joint; Z96.652 Presence of left artificial knee joint; Z96.651 Presence of right artificial knee joint
CPT/HCPCS: 36415; 71046-TC-FY; 80053; 81003; 82962; 84443; 85025; 85651; 86160; 86850; 86900; 86901; 93005; 93010; 99285-25; U0003

== ENCOUNTER 2020-08-12 17:32 | Emergency (ER) | payer OTHER ==
[2020-08-12 17:39] VITALS: BP 121/75; PULSE 92; TEMP 97.8; BMI 41.0
[2020-08-12] MEDS ORDERED: KETOROLAC TROMETHAMINE 30 MG/1 ML VIAL IM ONE (17:39)
--- NOTE | 2020-08-12 17:40 | PDOC ---
History of Present Illness - General Chief Complaint: Back Pain Stated Complaint: BACK PAIN Time Seen by Provider: 08/12/20 17:39 History Source: Patient - History of Present Illness Occurred: reports: other Pain Location: reports: back Past History - Medical History Allergies/Adverse Reactions: Allergies Allergy/AdvReac Type Severity Reaction Status Date / Time No Known Drug Allergies Allergy Verified 08/12/20 17:39 seasonal Allergy Mild Uncoded 08/12/20 17:39 Home Medications: Ambulatory Orders Gabapentin 600 mg PO BID 04/04/18 Cyclobenzaprine HCl [Flexeril 10 mg] 5 mg PO PRN PRN 06/20/20 Diphenhydramine HCl [Allergy Medication] 50 mg PO HS #60 tablet 06/20/20 Famotidine [Pepcid -] 40 mg PO DAILY #30 tablet 06/20/20 Gabapentin [Neurontin -] 600 mg PO BID capsule 06/20/20 Hydrochlorothiazide [Hctz -] 25 mg PO DAILY #30 tablet 06/20/20 Levothyroxine [Synthroid -] 100 mcg PO DAILY 06/20/20 Metformin HCl [Glucophage] 500 mg PO BID 06/20/20 Methylprednisolone [Medrol Dose Gallo] 4 mg PO ASDIR #21 tablet 06/20/20 Nifedipine ER [Procardia XL -] 30 mg PO DAILY #30 tab.er.24 06/20/20 Cyclobenzaprine HCl [Flexeril -] 10 mg PO HS #7 tablet 08/12/20 Naproxen 500 mg PO BID #14 tablet 08/12/20 Anemia: No Asthma: No Cancer: No Cardiac Disorders: No CVA: No COPD: No CHF: No DVT: No Dementia: No Diabetes: No GI Disorders: Yes (GERD) Disorders: No HTN: Yes Hypercholesterolemia: No Liver Disease: No Seizures: No Thyroid Disease: Yes - Surgical History Abdominal Surgery: Yes (FIBROIDS REMOVED 1999) Appendectomy: No Cardiac Surgery: No Cholecystectomy: No Lung Surgery: No Neurologic Surgery: No Orthopedic Surgery: Yes (RIGHT TKR , LEFT KNEE REPLACEMENT) - Reproductive History Is Patient Now?: No - Psycho-Social/Smoking History Smoking Status: No Smoking History: Never smoked Have you smoked in the past 12 months: No Number of Cigarettes Smoked Daily: 0 Information on smoking cessation initiated: No - Substance Abuse Hx (Audit-C & DAST Scrn) How often the patient has a drink containing alcohol: Never Score: In Men: 4 or > Positive; In Women: 3 or > Positive: 0 Screen Result (Pos requires Nsg. Audit-10AR): Negative In the last yr the pt used illegal drug/Rx for NonMed reason: No Score: Yes response is considered Positive: 0 Screen Result (Positive result requires Nsg. DAST-10): Negative Trauma Specific PMHX - Complaint Specific PMHX Arthritis: No Back Injury: Yes Neck Injury: No Hx Sacro Iliac Joint Dysfunction: No Review of Systems - Review of Systems Constitutional: No: Chills, Fever ABD/GI: No: Nausea, Vomiting, Abdominal cramping : No: Burning, Dysuria, Flank Pain, Hematuria Musculoskeletal: Yes: Back Pain Neurological: No: Numbness, Tingling, Weakness, Dizziness *Physical Exam - Vital Signs Last Vital Signs Temp Pulse Resp BP Pulse Ox 97.8 F 92 H 17 121/75 100 08/12/20 17:35 08/12/20 17:35 08/12/20 17:35 08/12/20 17:35 08/12/20 17:35 - Physical Exam General Appearance: Yes: Appropriately Dressed. No: Apparent Distress HEENT: positive: Normal Voice Neck: positive: Supple Respiratory/Chest: negative: Respiratory Distress Gastrointestinal/Abdominal: positive: Soft. negative: Tender Musculoskeletal: negative: CVA Tenderness, Vertebral Tenderness Extremity: positive: Normal Inspection Integumentary: positive: Dry, Warm Neurologic: positive: Fully Oriented, Alert, Normal Mood/Affect, Motor Strength 5/5 Medical Decision Making - Medical Decision Making 08/12/20 17:41 60-year-old morbidly obese female with history of HTN, hypothyroidism, GERD, lymphedema of legs, s/p b/l TKR, ambulates with cane, chronic lower back pain with multiple bulging disks and DJD on LS spine on MRI in 2014, currently gets biweekly PT sessions, here with her usual back pain getting worse over the past 2 to 3 days, located to left lower back and sometimes radiates to left leg. No acute sensory changes, lower extremity weakness bowel or bladder incontinence or saddle anesthesia. No other acute symptoms at this time. Takign nabumetone at home w/ no relief see exam Acute on chronic LBP DJD w/ herniated disc to LS spine on remote MRI Currently undoing PT sessions No red flags today Dc w/ pain control To cont f/u with neuro Discharge - Discharge Information Problems reviewed: Yes Clinical Impression/Diagnosis: Chronic low back pain Qualifiers: Back pain laterality: left Sciatica presence: unspecified whether sciatica present Qualified Code(s): M54.5 - Low back pain Condition: Good Disposition: HOME - Additional Discharge Information Prescriptions: Cyclobenzaprine HCl [Flexeril -] 10 mg PO HS #7 tablet Naproxen 500 mg PO BID #14 tablet - Follow up/Referral Referrals: Codey Newton MD, MD [Primary Care Provider] - - Patient Discharge Instructions Additional Instructions: Take medication as directed and continue to follow up with your doctors - Post Discharge Activity
[2020-08-12] MEDS ORDERED: KETOROLAC TROMETHAMINE 30 MG/1 ML VIAL ONE (17:41)
--- OUTSIDE RECORDS SUMMARY | 2020-08-12 17:52 | XMS ---
:1960 [facility] Organization [facility] Support Name Relationship Address Phone UE, UNEMPLOYED Unavailable Unavailable Unavailable MIRANDA BEYER MOTHER [address] [place] [address] UE Unavailable Unavailable Unavailable KAYLEEN MARNI MOTHER [address] [phone] [place] [address] BEYERMIRANDA EDMOND Mother [address], [address] [place] [address] Re-disclosure Warning The records that you are about to access may contain information from federally- assisted alcohol or drug abuse programs. If such information is present, then the following federally mandated warning applies: This information has been disclosed to you from records protected by federal confidentiality rules (42 CFR part 2). The federal rules prohibit you from making any further disclosure of this information unless further disclosure is expressly permitted by the written consent of the person to whom it pertains or as otherwise permitted by 42 CFR part 2. A general authorization for the release of medical or other information is NOT sufficient for this purpose. The Federal rules restrict any use of the information to criminally investigate or prosecute any alcohol or drug abuse patient.The records that you are about to access may contain highly sensitive health information, the redisclosure of which is protected by Article 27-F of the [facility] Public Health law. If you continue you may haveaccess to information: Regarding HIV / AIDS; Provided by facilities licensed or operated by the [facility] Office of Mental Health; or Provided by the [facility] Office for People With Developmental Disabilities. If such information is present, then the following [facility] mandated warning applies: This information has been disclosed to you from confidential records which are protected by state law. State law prohibits you from making any further disclosure of this information without the specific written consent of the person to whom it pertains, or as otherwise permitted by law. Any unauthorized further disclosure in violation of state law may result in a fine or fdc sentence or both. A general authorization for the release of medical or other information is NOT sufficient authorization for further disclosure. Insurance Providers Payer name Policy type Policy ID Covered Covered republican's Policy P antonio / Coverage republican ID relationship to [employer] Inf ormation type palafox ralali [id number] SP [id number] NON CAP [facility] [id number] MUNDO [email or web address] [id number] NON [place] FUND [id number] Medicaid [id number] S [id number] Wrap Claims Medicaid 4011 MH [id number] S [id number] Psychotherapy Only Medicaid 4013 [id number] S [id number] Regular Clinic Visit Medicaid 4013 [id number] S [id number] Regular Clinic Visit Problems, Conditions, and Diagnoses Code Display Name Description Problem Type Effective Dates Data Source(s) 490 BRONCHITIS NOT BRONCHITIS Diagnosis 01/20/2019 [facility] SPECIFIED ACUTE 10:12:15 AM EST V [facility] OR [facility]) Results ID Date Data Source [id number] 06/20/2020 01:00:00 AM EDT [facility] Name Value Range Interpretation Description Data Sup porting Code Source(s) Document(s ) SARS [facility] coronavirus 2 RNA This lab was ordered by [facility] and reported by [facility]. Procedure
== END 2020-08-12 17:56 | disposition home or self-care (01) ==
LOC: JERFT 17:32
PROC: 3E0233Z Introduction of Anti-inflammatory into Muscle, Percutaneous Approach (ICD-10-PCS; principal; 2020-08-12)
DX: M54.5 Low back pain (principal)
CPT/HCPCS: 99284-25

== ENCOUNTER 2021-10-12 16:42 | Emergency (ER) | payer OTHER ==
[2021-10-12 16:51] VITALS: BP 145/85; PULSE 95; TEMP 98.6; BMI 43.3
[2021-10-12] MEDS ORDERED: KETOROLAC TROMETHAMINE 60 MG/2 ML VIAL IM ONE (17:12)
[2021-10-12] MEDS ORDERED: KETOROLAC TROMETHAMINE 60 MG/2 ML VIAL ONE (17:14)
== END 2021-10-12 17:39 | disposition home or self-care (01) ==
LOC: JERFT 16:42 → JER 16:42 → JERFT 17:39
PROC: 3E023GC Introduction of Other Therapeutic Substance into Muscle, Percutaneous Approach (ICD-10-PCS; principal; 2021-10-12)
DX: M54.50 Low back pain, unspecified (principal)
CPT/HCPCS: 99284-25

== ENCOUNTER 2021-12-23 18:33 | Emergency (ER) | payer OTHER ==
[2021-12-23 18:56] VITALS: BP 152/92; PULSE 87; TEMP 98.3; BMI 44.1
[2021-12-23] MEDS ORDERED: KETOROLAC TROMETHAMINE 30 MG/1 ML VIAL IM ONE (19:16)
[2021-12-23] MEDS ORDERED: KETOROLAC TROMETHAMINE 30 MG/1 ML VIAL ONE (19:31)
== END 2021-12-23 21:01 | disposition home or self-care (01) ==
LOC: JERFT 18:33
PROC: 3E0233Z Introduction of Anti-inflammatory into Muscle, Percutaneous Approach (ICD-10-PCS; principal; 2021-12-23)
DX: M25.572 Pain in left ankle and joints of left foot (principal)
CPT/HCPCS: 73610-TC-LT-FY; 73630-TC-LT; 93971-TC; 99284-25

== ENCOUNTER 2022-03-04 16:57 | Emergency (ER) | payer OTHER ==
[2022-03-04 17:01] VITALS: BP 129/72; PULSE 90; TEMP 98; BMI 41.8
[2022-03-04] MEDS ORDERED: KETOROLAC TROMETHAMINE 30 MG/1 ML VIAL IM ONE (17:24)
[2022-03-04] MEDS ORDERED: CYCLOBENZAPRINE HCL 10 MG TABLET (FP) PO ONE (17:24)
[2022-03-04] MEDS ORDERED: LIDOCAINE 5% TOPICAL PATCH TP ONE (17:25)
[2022-03-04] MEDS ORDERED: CYCLOBENZAPRINE HCL 10 MG TABLET (FP) ONE (17:27)
[2022-03-04] MEDS ORDERED: LIDOCAINE 5% TOPICAL PATCH ONE (17:27)
[2022-03-04] MEDS ORDERED: KETOROLAC TROMETHAMINE 30 MG/1 ML VIAL ONE (17:27)
[2022-03-04] MEDS ORDERED: LIDOCAINE PATCH REMOVAL MC SCH (22:00)
== END 2022-03-04 17:39 | disposition home or self-care (01) ==
LOC: JERFT 16:57
PROC: 3E023GC Introduction of Other Therapeutic Substance into Muscle, Percutaneous Approach (ICD-10-PCS; principal; 2022-03-04)
DX: M54.31 Sciatica, right side (principal)
CPT/HCPCS: 99284-25

== ENCOUNTER 2022-03-06 20:46 | Emergency (ER) | payer OTHER ==
[2022-03-06 20:54] VITALS: BP 151/90; PULSE 96; TEMP 97.5; BMI 41.8
[2022-03-06] MEDS ORDERED: KETOROLAC TROMETHAMINE 30 MG/1 ML VIAL IM ONE (23:49)
[2022-03-07] MEDS ORDERED: KETOROLAC TROMETHAMINE 30 MG/1 ML VIAL ONE (00:35)
== END 2022-03-07 01:28 | disposition home or self-care (01) ==
LOC: JERFT 20:46 → JER 20:46
DX: M25.572 Pain in left ankle and joints of left foot (principal); M25.512 Pain in left shoulder; M25.511 Pain in right shoulder; M54.50 Low back pain, unspecified; M25.561 Pain in right knee; M25.562 Pain in left knee; W01.0XXA Fall on same level from slipping, tripping and stumbling without subsequent striking against object, initial encounter
CPT/HCPCS: 73030-TC-LT-FY; 73030-TC-RT-FY; 73562-TC-LT-FY; 73562-TC-RT-FY; 73610-TC-LT-FY; 73630-TC-LT; 99285-25

== ENCOUNTER 2022-09-20 17:57 | Emergency (ER) | payer OTHER ==
[2022-09-20 18:08] VITALS: BP 107/70; PULSE 102; RESP 18; TEMP 97; BMI 41.8
[2022-09-20] MEDS ORDERED: KETOROLAC TROMETHAMINE 30 MG/1 ML VIAL ONE (19:07)
[2022-09-20] MEDS ORDERED: KETOROLAC TROMETHAMINE 30 MG/1 ML VIAL IM ONE (19:07)
== END 2022-09-20 19:17 | disposition home or self-care (01) ==
LOC: JERFT 17:57
PROC: 3E023GC Introduction of Other Therapeutic Substance into Muscle, Percutaneous Approach (ICD-10-PCS; principal; 2022-09-20)
DX: M54.32 Sciatica, left side (principal); L29.9 Pruritus, unspecified
CPT/HCPCS: 99284-25

== ENCOUNTER 2024-03-17 15:44 | Emergency (ER) | payer OTHER ==
[2024-03-17 15:54] VITALS: BP 136/80; PULSE 86; RESP 18; TEMP 98.3; BMI 43.8
[2024-03-17] MEDS ORDERED: KETOROLAC TROMETHAMINE 30 MG/1 ML VIAL ONE (17:19)
[2024-03-17] MEDS ORDERED: LIDOCAINE 4% PATCH TP ONE (17:19)
[2024-03-17] MEDS ORDERED: ACETAMINOPHEN 500 MG TABLET (FP) ONE (17:19)
[2024-03-17] MEDS: KETOROLAC TROMETHAMINE 30 MG/1 ML VIAL IM ONE (17:43)
[2024-03-17] MEDS: LIDOCAINE 4% PATCH TP ONE (17:43)
[2024-03-17] MEDS: ACETAMINOPHEN 500 MG TABLET (FP) PO ONE (17:44)
[2024-03-17] MEDS ORDERED: LIDOCAINE PATCH REMOVAL MC ONE (22:00)
== END 2024-03-17 18:02 | disposition home or self-care (01) ==
LOC: JERFT 15:44
PROC: 3E0233Z Introduction of Anti-inflammatory into Muscle, Percutaneous Approach (ICD-10-PCS; principal; 2024-03-17)
DX: M54.32 Sciatica, left side (principal)
CPT/HCPCS: 99284-25

== ENCOUNTER 2024-09-17 17:51 | Emergency (ER) | payer OTHER ==
[2024-09-17 17:58] VITALS: BP 125/76; PULSE 93; RESP 18; TEMP 97.9; BMI 41.6
[2024-09-17] MEDS ORDERED: KETOROLAC TROMETHAMINE 15 MG/ML VIAL ONE (18:27)
[2024-09-17] MEDS: KETOROLAC TROMETHAMINE 30 MG/1 ML VIAL IVPUSH ONE (18:35)
[2024-09-17] MEDS: KETOROLAC TROMETHAMINE 15 MG/ML VIAL IM ONE (18:35)
== END 2024-09-17 18:39 | disposition home or self-care (01) ==
LOC: JERFT 17:51 → JER 17:51 → JERFT 18:39
PROC: 3E0233Z Introduction of Anti-inflammatory into Muscle, Percutaneous Approach (ICD-10-PCS; principal; 2024-09-17)
DX: M54.50 Low back pain, unspecified (principal); G89.29 Other chronic pain
CPT/HCPCS: 96372; 99284-25

== ENCOUNTER 2024-12-10 15:31 | Emergency (ER) | payer OTHER ==
[2024-12-10 15:54] VITALS: BP 137/83; PULSE 84; RESP 18; TEMP 98.8; BMI 43.0
[2024-12-10] MEDS ORDERED: LIDOCAINE 4% PATCH TP ONE (17:00)
[2024-12-10] MEDS ORDERED: ACETAMINOPHEN 500 MG TABLET (FP) ONE (17:00)
[2024-12-10] MEDS ORDERED: IBUPROFEN 600 MG TABLET (FP) PO ONE (17:00)
[2024-12-10] MEDS: IBUPROFEN 600 MG TABLET (FP) PO ONE (17:04)
[2024-12-10] MEDS: LIDOCAINE 4% PATCH TP ONE (17:04)
[2024-12-10] MEDS: ACETAMINOPHEN 500 MG TABLET (FP) PO ONE (17:04)
== END 2024-12-10 17:17 | disposition home or self-care (01) ==
LOC: JERFT 15:31
DX: M25.571 Pain in right ankle and joints of right foot (principal); M79.671 Pain in right foot
CPT/HCPCS: 99283-25

== ENCOUNTER 2025-05-27 09:48 | Emergency (ER) | payer OTHER ==
[2025-05-27 10:00] VITALS: BP 141/69; PULSE 79; RESP 22; TEMP 99; BMI 43.6
[2025-05-27 11:08] LABS: MCHC 30.8 g/dl (32.2-35.5); MEAN CELL VOLUME 81.7 fl (79.4-94.8); MEAN PLT VOLUME 9.2 fl (9.4-12.3); RDW 13.9 % (12.4-16.4)
[2025-05-27 11:55] LABS: CO2 24.0 mmol/L (21-32); GLUCOSE,RANDOM 101.0 mg/dL (74-106)
[2025-05-27 11:58] LABS: CREATININE 0.7 mg/dL (0.55-1.3); SGOT/AST 13.0 U/L (15-37); SGPT/ALT 16.0 U/L (13-61)
[2025-05-27 12:00] LABS: TOT PROT 6.6 g/dl (6.4-8.2)
[2025-05-27 12:01] LABS: ALK PHOS 91.0 U/L (45-117)
[2025-05-27 12:03] LABS: N-TERMINAL BNP 45.4 pg/ml (5-125)
[2025-05-27 13:54] LABS: HCV DIAGNOSTIC IN-HOUSE W/RFLX NON-REACTIVE (NONREACTIVE)
[2025-05-27 13:57] LABS: HIV INTERPRETATION NEGATIVE (NEGATIVE)
== END 2025-05-27 14:14 | disposition home or self-care (01) ==
LOC: JER 09:48
DX: R05.3 Chronic cough (principal); I89.0 Lymphedema, not elsewhere classified
CPT/HCPCS: 36415; 71045-TC-FY; 80053; 83605; 83880; 84484; 85025; 86803; 87389; 93005; 93010; 99285-25

== ENCOUNTER 2025-07-29 13:56 | Emergency (ER) | payer OTHER ==
[2025-07-29 14:04] VITALS: BP 143/76; PULSE 96; RESP 18; TEMP 97.7; BMI 43.3
[2025-07-29] MEDS ORDERED: predniSONE 20 MG TABLET (UD) ONE (15:22)
[2025-07-29] MEDS ORDERED: LIDOCAINE 4% PATCH TP ONE (15:22)
[2025-07-29] MEDS ORDERED: KETOROLAC TROMETHAMINE 30 MG/1 ML VIAL ONE (15:22)
[2025-07-29] MEDS: KETOROLAC TROMETHAMINE 30 MG/1 ML VIAL IM ONE (15:56)
[2025-07-29] MEDS: SODIUM CHLORIDE FOR INHALATION 3 ML VIAL.NEB IH ONE (15:56)
[2025-07-29] MEDS: LIDOCAINE 5% TOPICAL PATCH TP ONE (15:56)
[2025-07-29] MEDS: predniSONE 20 MG TABLET (UD) PO ONE (15:56)
[2025-07-29] MEDS ORDERED: LIDOCAINE PATCH REMOVAL MC SCH (22:00)
== END 2025-07-29 16:46 | disposition home or self-care (01) ==
LOC: JERFT 13:56
PROC: 3E0233Z Introduction of Anti-inflammatory into Muscle, Percutaneous Approach (ICD-10-PCS; principal; 2025-07-29)
DX: M54.50 Low back pain, unspecified (principal); G89.29 Other chronic pain; R05.9 Cough, unspecified
CPT/HCPCS: 96372; 99284-25